=== PATIENT | male | born 1975 | race Two or more races ===

== ENCOUNTER 2020-09-01 14:55 | Emergency (ER) | payer SELFPAY ==
[~2020-09-01] VITALS: Ht 177.8 cm; Wt 91.0 kg
[2020-09-01] MEDS ORDERED: KETOROLAC 60MG/2ML VIAL IM ONE (15:30)
[2020-09-01 16:02] VITALS: BP 139/86
== END 2020-09-01 16:06 | disposition home or self-care (01) ==
LOC: ER 14:55
DX: M25.511 Pain in right shoulder (principal); M25.521 Pain in right elbow
CPT/HCPCS: 73030; 73070; 96372; 99284; J1885

== ENCOUNTER 2021-04-15 02:07 | Emergency (ER) | payer MEDICAID ==
[~2021-04-15] VITALS: Ht 167.6 cm; Wt 78.0 kg
[2021-04-15 04:11] LABS: CLARITY URINE CLEAR (CLEAR); COLOR URINE YELLOW (YELLOW); KETONES URINE TRACE (NEGATIVE); LEUKOCYTE ESTERASE URINE NEGATIVE (NEGATIVE); NITRITE URINE NEGATIVE (NEGATIVE); OCCULT BLOOD URINE NEGATIVE (NEGATIVE); PROTEIN URINE TRACE (NEGATIVE); SPECIFIC GRAVITY URINE 1.022 (1.005-1.030); UROBILINOGEN URINE 0.2 E.U./dL (0.2-1.0)
[2021-04-15 04:19] LABS: EOSINOPHILS % 2.3 % (0.0-5.0); HEMATOCRIT. 44.6 % (42.0-52.0); HEMOGLOBIN. 15.2 g/dL (14.0-18.0); LYMPHOCYTES % 17.1 % (20.0-50.0); MEAN CORPUSCULAR HEMOGLOBIN 28.3 pg (28.0-32.0); MEAN CORPUSCULAR VOLUME 82.9 fL (80.0-94.0); MONOCYTES % 6.8 % (2.0-8.0); NEUTROPHILS % 72.8 % (40.0-76.0); PLATELET 289 x1000/uL (130-400); RED BLOOD CELL COUNT 5.38 mill/uL (4.7-6.1); RED CELL DISTRIBUTION WIDTH 12.8 % (11.6-14.6)
[2021-04-15 04:22] LABS: CHLORIDE 108 mEq/L (98-107)
[2021-04-15 04:24] LABS: *AMPHETAMINES SCREEN URINE PRESUMTIVE POSITIVE (NEGATIVE); *BARBITURATES SCREEN URINE NEGATIVE (NEGATIVE); *BENZODIAZEPINES SCREEN URINE NEGATIVE (NEGATIVE); *COCAINE SCREEN URINE NEGATIVE (NEGATIVE); METHADONE URINE SCREEN NEGATIVE (NEGATIVE)
[2021-04-15 04:25] LABS: CANNABINOID URINE SCREEN NEGATIVE (NEGATIVE); OPIATES URINE SCREEN NEGATIVE (NEGATIVE); PHENCYCLIDINE URINE SCREEN NEGATIVE (NEGATIVE)
[2021-04-15 04:27] LABS: ETHANOL BLOOD < 10 mg/dL
[2021-04-15 06:25] VITALS: BP 120/92
== END 2021-04-15 06:26 | disposition home or self-care (01) ==
LOC: ER 02:07
DX: F15.10 Other stimulant abuse, uncomplicated (principal); F16.10 Hallucinogen abuse, uncomplicated; F22 Delusional disorders; R06.00 Dyspnea, unspecified
CPT/HCPCS: 36415; 71045; 80048; 80305; 80320; 81003; 85025; 93005; 99285; G0480

== ENCOUNTER 2021-04-28 16:40 | Emergency (ER) | payer MEDICAID ==
[~2021-04-28] VITALS: Ht 175.3 cm; Wt 100.0 kg
[2021-04-28 17:02] VITALS: BP 117/78
[2021-04-28] MEDS ORDERED: ACETAMINOPHEN 500MG TABLET PO ONE (18:30)
== END 2021-04-28 20:50 | disposition home or self-care (01) ==
LOC: ER 16:40
DX: M79.621 Pain in right upper arm (principal); M25.531 Pain in right wrist
CPT/HCPCS: 29125; 73080; 73090; 73110; 99284; A4565

== ENCOUNTER 2021-06-30 13:32 | Emergency (ER) | payer MEDICAID ==
[~2021-06-30] VITALS: Ht 177.8 cm; Wt 80.0 kg
[2021-06-30 13:41] VITALS: BP 136/80
[2021-06-30] MEDS ORDERED: LORAZEPAM 0.5MG TABLET PO ONE (14:15)
== END 2021-06-30 15:28 | disposition home or self-care (01) ==
LOC: ER 13:41
DX: J02.9 Acute pharyngitis, unspecified (principal)
CPT/HCPCS: 99283

== ENCOUNTER 2021-09-27 07:36 | Emergency (ER) | payer MEDICAID ==
[~2021-09-27] VITALS: Ht 175.3 cm; Wt 76.0 kg
[2021-09-27 08:56] LABS: BASOPHILS % 1.1 % (0.0-2.0); HEMATOCRIT. 43.7 % (42.0-52.0); MEAN CORPUSCULAR HEMOGLOBIN 29.1 pg (28.0-32.0); MEAN CORPUSCULAR VOLUME 84.5 fL (80.0-94.0); MEAN PLATELET VOLUME 8.5 fl (7.4-10.4); MONOCYTES % 4.3 % (2.0-8.0); NEUTROPHILS % 79.6 % (40.0-76.0); PLATELET 293 x1000/uL (130-400); RED BLOOD CELL COUNT 5.16 mill/uL (4.7-6.1); RED CELL DISTRIBUTION WIDTH 13.2 % (11.6-14.6)
[2021-09-27 09:03] LABS: CHLORIDE 109 mEq/L (98-107)
[2021-09-27 09:12] LABS: ETHANOL BLOOD < 10 mg/dL
[2021-09-27 12:04] LABS: CLARITY URINE CLEAR (CLEAR); COLOR URINE YELLOW (YELLOW); KETONES URINE NEGATIVE (NEGATIVE); LEUKOCYTE ESTERASE URINE NEGATIVE (NEGATIVE); NITRITE URINE NEGATIVE (NEGATIVE); OCCULT BLOOD URINE NEGATIVE (NEGATIVE); PROTEIN URINE NEGATIVE (NEGATIVE); SPECIFIC GRAVITY URINE 1.011 (1.005-1.030); UROBILINOGEN URINE 0.2 E.U./dL (0.2-1.0)
[2021-09-27 12:15] LABS: *AMPHETAMINES SCREEN URINE PRESUMTIVE POSITIVE (NEGATIVE); *BARBITURATES SCREEN URINE NEGATIVE (NEGATIVE); *BENZODIAZEPINES SCREEN URINE NEGATIVE (NEGATIVE); *COCAINE SCREEN URINE NEGATIVE (NEGATIVE); CANNABINOID URINE SCREEN NEGATIVE (NEGATIVE); METHADONE URINE SCREEN NEGATIVE (NEGATIVE)
[2021-09-27 12:23] LABS: OPIATES URINE SCREEN NEGATIVE (NEGATIVE)
[2021-09-27 12:24] LABS: PHENCYCLIDINE URINE SCREEN NEGATIVE (NEGATIVE)
[2021-09-27 15:17] VITALS: BP 129/71
== END 2021-09-27 15:32 | disposition home or self-care (01) ==
LOC: ER 07:48
DX: R44.1 Visual hallucinations (principal); F15.10 Other stimulant abuse, uncomplicated; F19.10 Other psychoactive substance abuse, uncomplicated
CPT/HCPCS: 36415; 80053; 80305; 80307; 80329; 81003; 85025; 99285; G0480; 80320

== ENCOUNTER 2021-10-17 10:22 | Emergency (ER) | payer MEDICAID ==
[~2021-10-17] VITALS: Ht 167.6 cm; Wt 95.0 kg
[2021-10-17 11:10] LABS: BASOPHILS % 1.3 % (0.0-2.0); EOSINOPHILS % 1.5 % (0.0-5.0); HEMATOCRIT. 47.2 % (42.0-52.0); HEMOGLOBIN. 16.1 g/dL (14.0-18.0); LYMPHOCYTES % 15.5 % (20.0-50.0); MEAN CORPUSCULAR HEMOGLOBIN 28.8 pg (28.0-32.0); MEAN CORPUSCULAR VOLUME 84.3 fL (80.0-94.0); MEAN PLATELET VOLUME 8.1 fl (7.4-10.4); MONOCYTES % 5.2 % (2.0-8.0); NEUTROPHILS % 76.5 % (40.0-76.0); PLATELET 339 x1000/uL (130-400); RED BLOOD CELL COUNT 5.59 mill/uL (4.7-6.1); RED CELL DISTRIBUTION WIDTH 13.1 % (11.6-14.6)
[2021-10-17 11:13] LABS: CLARITY URINE CLEAR (CLEAR); COLOR URINE YELLOW (YELLOW); KETONES URINE NEGATIVE (NEGATIVE); LEUKOCYTE ESTERASE URINE NEGATIVE (NEGATIVE); NITRITE URINE NEGATIVE (NEGATIVE); OCCULT BLOOD URINE NEGATIVE (NEGATIVE); PROTEIN URINE 1+ (NEGATIVE); SPECIFIC GRAVITY URINE 1.012 (1.005-1.030); UROBILINOGEN URINE 0.2 E.U./dL (0.2-1.0)
[2021-10-17 11:17] LABS: CHLORIDE 104 mEq/L (98-107)
[2021-10-17 11:24] LABS: ETHANOL BLOOD < 10 mg/dL
[2021-10-17 11:29] LABS: *BARBITURATES SCREEN URINE NEGATIVE (NEGATIVE); *BENZODIAZEPINES SCREEN URINE NEGATIVE (NEGATIVE); *COCAINE SCREEN URINE NEGATIVE (NEGATIVE)
[2021-10-17 11:30] LABS: METHADONE URINE SCREEN NEGATIVE (NEGATIVE); OPIATES URINE SCREEN NEGATIVE (NEGATIVE); PHENCYCLIDINE URINE SCREEN NEGATIVE (NEGATIVE)
[2021-10-17 11:31] LABS: *AMPHETAMINES SCREEN URINE PRESUMTIVE POSITIVE (NEGATIVE); CANNABINOID URINE SCREEN NEGATIVE (NEGATIVE)
[2021-10-17 14:00] VITALS: BP 127/81
== END 2021-10-17 14:02 | disposition home or self-care (01) ==
LOC: ER 10:22
DX: F19.10 Other psychoactive substance abuse, uncomplicated (principal); F22 Delusional disorders; F23 Brief psychotic disorder
CPT/HCPCS: 36415; 73030; 80053; 80305; 80307; 80320; 80329; 81003; 85025; 99284; G0480

== ENCOUNTER 2023-07-25 10:27 | Inpatient (IN) | payer MEDICAID ==
[~2023-07-25] VITALS: Ht 170.2 cm; Wt 75.3 kg
[2023-07-25] MEDS ORDERED: IOHEXOL-350 100 ML BOTTLE ONE ×2 (11:26→12:30)
[2023-07-25 11:36] LABS: MEAN CORPUSCULAR HEMOGLOBIN 29.2 pg (28.0-32.0); MEAN CORPUSCULAR HGB CONC 34.4 g/dL (31.0-37.0); MEAN CORPUSCULAR VOLUME 84.9 fL (80.0-94.0); MEAN PLATELET VOLUME 8.3 fl (7.4-10.4); PLATELET 252 x1000/uL (130-400); RED BLOOD CELL COUNT 1.84 mill/uL (4.7-6.1); RED CELL DISTRIBUTION WIDTH 12.8 % (11.6-14.6); WHITE BLOOD COUNT 17.5 x1000/uL (4.5-11.0)
[2023-07-25] MEDS ORDERED: ONDANSETRON HCL 4MG/2ML INJ IV ONE (11:45)
[2023-07-25 11:48] LABS: CHLORIDE 102 mEq/L (98-107); INDEX HEMOLYSI 1 (1-3); INDEX ICTERIC 1 (1-4); INDEX LIPEMIC 1 (1-3); INR 1.4; POTASSIUM 3.6 mEq/L (3.5-5.1); PROTHROMBIN TIME 14.3 sec (9.6-11.0); SODIUM 134 mEq/L (136-145)
[2023-07-25 11:59] LABS: ALANINE AMINOTRANSFERASE 30 IU/L (13-61); ALBUMIN 2.1 g/dL (3.4-5.0); ASPARTATE AMINOTRANSFERASE 17 IU/L (15-37); BILIRUBIN TOTAL 0.5 mg/dL (0.1-1.0); CALCIUM 6.6 mg/dL (8.5-10.1); CARBON DIOXIDE 19 mEq/L (21-32); CREATININE 1.3 mg/dL (0.6-1.3); ETHANOL BLOOD < 10 mg/dL (-10); GLUCOSE 204 mg/dL (70-105); PROTEIN TOTAL 4.2 g/dL (6.0-8.3); UREA NITROGEN BLOOD 39 mg/dL (7-21)
[2023-07-25 12:32] LABS: DIFFERENTIAL COMMENT 1; HEMATOCRIT. 15.7 % (42.0-52.0); HEMOGLOBIN. 5.4 g/dL (14.0-18.0)
[2023-07-25 13:20] LABS: PLATELET ESTIMATE NORMAL
[2023-07-25 15:30] VITALS: PULSE 116; RESP 20
[2023-07-25] MEDS ORDERED: MIDAZOLAM HCL 2 MG/2 ML VIAL IV ONE (15:45)
[2023-07-25] MEDS ORDERED: MIDAZOLAM HCL 100 MG in DEXT 5% WATER 80 ML IV ONE (15:45)
[2023-07-25] MEDS ORDERED: MIDAZOLAM HCL 100 MG in SODIUM CHLORIDE 0.9% 80 ML IV NR (16:00)
[2023-07-25] MEDS ORDERED: FENTANYL CITRATE/PF 1,000 MCG in SODIUM CHLORIDE 0.9% 80 ML IV PRN (16:00)
[2023-07-25] MEDS ORDERED: FENTANYL CITRATE 2,500 MCG in SODIUM CHLORIDE 0.9% 200 ML IV PRN (16:30)
[2023-07-25 17:00] LABS: CLARITY URINE CLEAR (CLEAR); COLOR URINE YELLOW (YELLOW); GLUCOSE URINE NEGATIVE (NEGATIVE); KETONES URINE NEGATIVE (NEGATIVE); LEUKOCYTE ESTERASE URINE NEGATIVE (NEGATIVE); NITRITE URINE NEGATIVE (NEGATIVE); OCCULT BLOOD URINE 2+ (NEGATIVE); PH URINE 5.5 (4.5-8.0); PROTEIN URINE NEGATIVE (NEGATIVE); SPECIFIC GRAVITY URINE 1.076 (1.005-1.030); UROBILINOGEN URINE 0.2 E.U./dL (0.2-1.0)
[2023-07-25 17:03] LABS: BACTERIA URINE NONE SEEN; WBC URINE 0-2 /hpf (0-2); YEAST URINE NONE SEEN
[2023-07-25 17:16] LABS: *AMPHETAMINES SCREEN URINE NEGATIVE (NEGATIVE); *BARBITURATES SCREEN URINE NEGATIVE (NEGATIVE); *BENZODIAZEPINES SCREEN URINE NEGATIVE (NEGATIVE); *COCAINE SCREEN URINE NEGATIVE (NEGATIVE); CANNABINOID URINE SCREEN NEGATIVE (NEGATIVE); ECSTASY MDMA SCREEN URINE NEGATIVE (NEGATIVE); METHADONE URINE SCREEN NEGATIVE (NEGATIVE); OPIATES URINE SCREEN NEGATIVE (NEGATIVE); PHENCYCLIDINE URINE SCREEN PRESUMTIVE POSITIVE (NEGATIVE)
[2023-07-25 17:40] LABS: RBC URINE 0-2 /hpf (0-2); SQUAMOUS EPITHELIAL CELL URINE RARE /lpf (RARE/1+)
[2023-07-25 18:00] VITALS: PULSE 125; RESP 27
[2023-07-25 19:14] LABS: BG CARBOXYHEMOGLOBIN 0.3 % (0.5-1.5); BG FRACTION INSPIRED OXYGEN 100; BG HCO3 ACT 20.1 mmol/L (22.0-26.0); BG METHEMOGLOBIN 0.3 % (0.0-1.5); BG OXYHEMOGLOBIN 98.4 % (94.0-97.0); BG PCO2 23.5 mmHg (35.0-45.0); BG SAMPLE SITE RIGHT RADIAL; BG TOTAL HEMOGLOBIN 10.9 g/dL (12.0-18.0); BG VENT MODE VENT - AC
[2023-07-25 20:00] VITALS: PULSE 137; RESP 30
[2023-07-25] MEDS ORDERED: DEXTROSE 50% WATER 50ML SYRINGE IV PRN (20:00)
[2023-07-25] MEDS ORDERED: IPRATROPIUM/ALBUTEROL 0.5-3(2.5)MG/3ML NEB HHN PRN (20:00)
[2023-07-25] MEDS ORDERED: CLONIDINE 0.1MG TABLET PO PRN (20:00)
[2023-07-25] MEDS ORDERED: HYDROCODONE/ACETAMINOPHEN 5/325MG TABLET PO PRN (20:00)
[2023-07-25] MEDS ORDERED: SODIUM CHLORIDE 0.9% 500 ML IV NR (20:15)
[2023-07-25] MEDS ORDERED: PHENYLEPHRINE 100 MG in DEXT 5% WATER 240 ML IV PRN (20:15)
[2023-07-25] MEDS ORDERED: NALOXONE HCL 0.4MG/ML VIAL IV PRN (20:30)
[2023-07-25] MEDS ORDERED: VANCOMYCIN 1.25GM PMX (XELLIA) 250 ML IV NR (20:30)
[2023-07-25 20:37] LABS: HEMATOCRIT. 26.9 % (42.0-52.0); HEMOGLOBIN. 9.4 g/dL (14.0-18.0); MEAN CORPUSCULAR HEMOGLOBIN 29.9 pg (28.0-32.0); MEAN CORPUSCULAR VOLUME 85.4 fL (80.0-94.0); MEAN PLATELET VOLUME 8.3 fl (7.4-10.4); PLATELET 186 x1000/uL (130-400); RED BLOOD CELL COUNT 3.15 mill/uL (4.7-6.1); RED CELL DISTRIBUTION WIDTH 15.1 % (11.6-14.6); WHITE BLOOD COUNT 30.9 x1000/uL (4.5-11.0)
[2023-07-25 20:39] LABS: DIFFERENTIAL COMMENT 1
[2023-07-25 20:46] LABS: AMMONIA 41 uMol/L (<32); INDEX HEMOLYSI 1 (1-3); INDEX ICTERIC 1 (1-4); INDEX LIPEMIC 1 (1-3)
[2023-07-25 20:56] LABS: PLATELET ESTIMATE NORMAL
[2023-07-25] MEDS ORDERED: INSULIN LISPRO 100 UNITS/ML SUBCUT SCH (21:00)
[2023-07-25 21:05] LABS: CHOLESTEROL 68 mg/dL (<200); CREATINE KINASE 194 IU/L (39-308); HDL CHOLESTEROL 27 mg/dL (40-59); LDL CHOLESTEROL 31 mg/dL (5-100); T4 FREE 1.19 ng/dL (0.76-1.46); THYROID STIMULATING HORMONE 0.21 uIU/mL (0.36-3.74); TRIGLYCERIDE 129 mg/dL (0-150); TROPONIN I HIGH SENSITIVITY 39 ng/L (<78)
[2023-07-25] MEDS: PANTOPRAZOLE SODIUM 40 MG/VIAL IV SCH (21:30)
[2023-07-25] MEDS: SODIUM CHLORIDE 0.9% 1,000 ML IV SCH (21:31)
[2023-07-25] MEDS: BLOOD SUGAR DIAGNOSTIC STRIP TEST SCH (21:46)
[2023-07-25] MEDS: ACETAMINOPHEN 325MG TABLET PO PRN (21:59)
[2023-07-25] MEDS ORDERED: PIPERACILLIN/TAZ 3.375G PREMIX 50 ML IV SCH (22:00)
[2023-07-25] MEDS ORDERED: PIPERACILLIN/TAZOBACTAM 3.375 G in DEXTROSE 5% WATER 50 ML IV SCH (22:00)
[2023-07-26] VITALS (115 sets, daily range): BP systolic 80–134; BP diastolic 23–86; PULSE 94–139; RESP 12–30; TEMP 97.5–100
[2023-07-26] MEDS: IPRATROPIUM BROMIDE (0.02%) 0.5MG/2.5ML NEB HHN SCH ×4 (00:15→20:19)
[2023-07-26] MEDS: SODIUM CHLORIDE 0.9% 1,000 ML IV SCH ×2 (02:07→16:00)
[2023-07-26] MEDS: PHENYLEPHRINE 100 MG in DEXT 5% WATER 240 ML IV PRN ×2 (04:10→14:41)
[2023-07-26] MEDS: BLOOD SUGAR DIAGNOSTIC STRIP TEST SCH (06:26)
[2023-07-26] MEDS: PIPERACILLIN/TAZOBACTAM 3.375G in DEXT 5% WATER 50ML IV SCH ×2 (07:00→14:41)
[2023-07-26 07:16] LABS: BASOPHILS % 0.2 % (0.0-2.0); DIFFERENTIAL COMMENT 0; LYMPHOCYTES % 7.4 % (20.0-50.0); MEAN CORPUSCULAR HEMOGLOBIN 31.4 pg (28.0-32.0); MEAN CORPUSCULAR HGB CONC 35.1 g/dL (31.0-37.0); MEAN CORPUSCULAR VOLUME 89.5 fL (80.0-94.0); MEAN PLATELET VOLUME 9.3 fl (7.4-10.4); MONOCYTES % 6.4 % (2.0-8.0); PLATELET 165 x1000/uL (130-400); RED BLOOD CELL COUNT 1.98 mill/uL (4.7-6.1)
[2023-07-26 07:17] LABS: CHLORIDE 114 mEq/L (98-107); INDEX HEMOLYSI 1 (1-3); INDEX ICTERIC 1 (1-4); INDEX LIPEMIC 1 (1-3); POTASSIUM 4.4 mEq/L (3.5-5.1); SODIUM 142 mEq/L (136-145)
[2023-07-26 07:23] LABS: ALANINE AMINOTRANSFERASE 26 IU/L (13-61); ALBUMIN 1.7 g/dL (3.4-5.0); ASPARTATE AMINOTRANSFERASE 38 IU/L (15-37); BILIRUBIN TOTAL 0.6 mg/dL (0.1-1.0); CALCIUM 6.6 mg/dL (8.5-10.1); CARBON DIOXIDE 20 mEq/L (21-32); GLUCOSE 148 mg/dL (70-105); PROTEIN TOTAL 3.4 g/dL (6.0-8.3); UREA NITROGEN BLOOD 34 mg/dL (7-21)
[2023-07-26 07:52] LABS: HEMOGLOBIN. 6.2 g/dL (14.0-18.0)
[2023-07-26 07:53] LABS: HEMATOCRIT. 17.7 % (42.0-52.0)
[2023-07-26 08:50] LABS: BG BASE EXCESS -1.4 mmol/L (-2.0-2.0); BG CARBOXYHEMOGLOBIN 0.3 % (0.5-1.5); BG DEOXYHEMOGLOBIN 1.9 % (0.0-5.0); BG FRACTION INSPIRED OXYGEN 50; BG HCO3 ACT 21.7 mmol/L (22.0-26.0); BG METHEMOGLOBIN 0.1 % (0.0-1.5); BG OXYGEN SATURATION 98.1 % (92.0-98.5); BG OXYHEMOGLOBIN 97.7 % (94.0-97.0); BG PCO2 29.4 mmHg (35.0-45.0); BG PH 7.485 (7.350-7.450); BG PO2 130.3 mmHg (75.0-100.0); BG SAMPLE SITE LEFT RADIAL; BG TOTAL HEMOGLOBIN 7.6 g/dL (12.0-18.0); BG VENT MODE VENT - AC
[2023-07-26] MEDS ORDERED: VANCOMYCIN 1G PREMIX 200 ML IV SCH (09:00)
[2023-07-26] MEDS: PANTOPRAZOLE SODIUM 40 MG/VIAL IV SCH ×2 (10:29→16:40)
[2023-07-26] MEDS: VANCOMYCIN 1.25GM PMX (XELLIA) 250 ML IV SCH ×2 (10:29→20:48)
[2023-07-26] MEDS ORDERED: GUAIFENESIN-DM 200MG-20MG/10ML UDC PO SCH (11:45)
[2023-07-26] MEDS ORDERED: MIDAZOLAM HCL 100 MG in SODIUM CHLORIDE 0.9% 80 ML IV PRN (12:00)
[2023-07-26] MEDS ORDERED: FENTANYL CITRATE/PF 2,500 MCG in SODIUM CHLORIDE 0.9% 200 ML IV PRN (14:00)
[2023-07-26 14:50] LABS: HEMATOCRIT 23.3 % (42.0-52.0); HEMOGLOBIN 7.9 g/dL (14.0-18.0)
[2023-07-26 15:51] LABS: HEPATITIS B SURFACE ANTIGEN NEGATIVE
[2023-07-26 16:21] LABS: HEPATITIS A AB IGM NEGATIVE (NEGATIVE)
[2023-07-26] MEDS: PHYTONADIONE 10MG/ML INJ SUBCUT SCH (16:38)
[2023-07-26] MEDS ORDERED: CALCIUM GLUCONATE 1GM PREMIX 100 ML IV NR (17:30)
[2023-07-26 20:51] LABS: HEPATITIS C VIR.AB 0.12 INDEXVAL (0.00-0.80)
[2023-07-26 20:52] LABS: HEPATITIS B CORE AB IGM NEGATIVE
[2023-07-26] MEDS ORDERED: PNEUMOCOCCAL 23-VAL P-SAC VAC 0.5 ML IM ONE (21:00)
[2023-07-26 22:19] LABS: HEMATOCRIT. 21.9 % (42.0-52.0); HEMOGLOBIN. 7.3 g/dL (14.0-18.0); MEAN CORPUSCULAR HEMOGLOBIN 29.9 pg (28.0-32.0); MEAN CORPUSCULAR HGB CONC 33.3 g/dL (31.0-37.0); MEAN CORPUSCULAR VOLUME 89.8 fL (80.0-94.0); MEAN PLATELET VOLUME 9.1 fl (7.4-10.4); PLATELET 158 x1000/uL (130-400); RED BLOOD CELL COUNT 2.44 mill/uL (4.7-6.1); RED CELL DISTRIBUTION WIDTH 14.4 % (11.6-14.6)
[2023-07-26 22:21] LABS: DIFFERENTIAL COMMENT 1; HEMATOCRIT 22.3 % (42.0-52.0); HEMOGLOBIN 7.5 g/dL (14.0-18.0)
[2023-07-26 22:28] LABS: INR 1.1
[2023-07-26 22:32] LABS: INDEX HEMOLYSI 1 (1-3); INDEX ICTERIC 1 (1-4); INDEX LIPEMIC 1 (1-3)
[2023-07-26 22:35] LABS: IRON 25 ug/dL (50-175); TOTAL IRON BINDING CAPACITY 324 ug/dL (250-450)
[2023-07-26 22:45] LABS: PLATELET ESTIMATE NORMAL
[2023-07-26 22:54] LABS: FERRITIN 190 ng/mL (22-322)
[2023-07-26 23:06] LABS: VITAMIN B12 SERUM 343 pg/mL (211-911)
[2023-07-27] VITALS (97 sets, daily range): BP systolic 102–177; BP diastolic 52–99; PULSE 81–139; RESP 8–84; TEMP 98.2–100.1
[2023-07-27 00:30] LABS: HEMOGLOBIN 6.3 g/dL (14.0-18.0)
[2023-07-27 00:31] LABS: HEMATOCRIT 19.1 % (42.0-52.0)
[2023-07-27] MEDS: IPRATROPIUM BROMIDE (0.02%) 0.5MG/2.5ML NEB HHN SCH ×4 (01:31→20:30)
[2023-07-27] MEDS: PIPERACILLIN/TAZOBACTAM 3.375G in DEXT 5% WATER 50ML IV SCH ×4 (01:35→21:21)
[2023-07-27] MEDS: SODIUM CHLORIDE 0.9% 1,000 ML IV SCH ×3 (01:59→21:21)
[2023-07-27 05:58] LABS: MEAN CORPUSCULAR HEMOGLOBIN 29.8 pg (28.0-32.0); MEAN CORPUSCULAR HGB CONC 33.4 g/dL (31.0-37.0); MEAN CORPUSCULAR VOLUME 89.2 fL (80.0-94.0); MEAN PLATELET VOLUME 8.6 fl (7.4-10.4); PLATELET 141 x1000/uL (130-400); RED CELL DISTRIBUTION WIDTH 14.2 % (11.6-14.6); WHITE BLOOD COUNT 27.7 x1000/uL (4.5-11.0)
[2023-07-27 06:06] LABS: CHLORIDE 119 mEq/L (98-107); INDEX HEMOLYSI 1 (1-3); INDEX ICTERIC 1 (1-4); INDEX LIPEMIC 1 (1-3); POTASSIUM 3.7 mEq/L (3.5-5.1); SODIUM 142 mEq/L (136-145)
[2023-07-27 06:18] LABS: CALCIUM 6.8 mg/dL (8.5-10.1); CARBON DIOXIDE 24 mEq/L (21-32); CREATININE 0.9 mg/dL (0.6-1.3); GLUCOSE 122 mg/dL (70-105); UREA NITROGEN BLOOD 21 mg/dL (7-21)
[2023-07-27 06:28] LABS: DIFFERENTIAL COMMENT 1; HEMATOCRIT. 20.5 % (42.0-52.0); HEMOGLOBIN. 6.8 g/dL (14.0-18.0)
[2023-07-27 07:35] LABS: NUCLEATED RED BLOOD CELLS 7 /100 WBC; PLATELET ESTIMATE NORMAL
[2023-07-27 08:02] LABS: BG CARBOXYHEMOGLOBIN 0.4 % (0.5-1.5); BG DEOXYHEMOGLOBIN 2.5 % (0.0-5.0); BG HCO3 ACT 22.3 mmol/L (22.0-26.0); BG METHEMOGLOBIN 0.3 % (0.0-1.5); BG OXYGEN SATURATION 97.5 % (92.0-98.5); BG OXYHEMOGLOBIN 96.8 % (94.0-97.0); BG PCO2 30.6 mmHg (35.0-45.0); BG PO2 107.9 mmHg (75.0-100.0); BG SAMPLE SITE RIGHT RADIAL; BG TOTAL HEMOGLOBIN 6.8 g/dL (12.0-18.0); BG TOTAL RESPIRATORY RATE 17 b/min; BG VENT MODE VENT - AC
[2023-07-27] MEDS: PHYTONADIONE 10MG/ML INJ SUBCUT SCH (09:43)
[2023-07-27] MEDS: VANCOMYCIN 1.25GM PMX (XELLIA) 250 ML IV SCH (09:43)
[2023-07-27] MEDS: PANTOPRAZOLE SODIUM 40 MG/VIAL IV SCH ×2 (09:43→18:15)
[2023-07-27] MEDS ORDERED: IOHEXOL-350 100 ML BOTTLE ONE (14:53)
[2023-07-27 16:40] LABS: HEMATOCRIT 22.1 % (42.0-52.0); HEMOGLOBIN 7.4 g/dL (14.0-18.0)
[2023-07-27] MEDS ORDERED: VANCOMYCIN 1.25GM PMX (XELLIA) 250 ML IV SCH (18:00)
[2023-07-27] MEDS: ACETAMINOPHEN 325MG TABLET PO PRN (18:57)
[2023-07-27 22:30] LABS: HEMATOCRIT 24.7 % (42.0-52.0); HEMOGLOBIN 8.2 g/dL (14.0-18.0)
[2023-07-28] VITALS (66 sets, daily range): BP systolic 88–169; BP diastolic 51–94; PULSE 70–120; RESP 12–39; TEMP 97.8–99.5
[2023-07-28] MEDS: IPRATROPIUM BROMIDE (0.02%) 0.5MG/2.5ML NEB HHN SCH ×4 (01:37→20:57)
[2023-07-28 05:15] LABS: HEMATOCRIT. 23.2 % (42.0-52.0); HEMOGLOBIN. 7.9 g/dL (14.0-18.0); MEAN CORPUSCULAR HGB CONC 34.1 g/dL (31.0-37.0); MEAN CORPUSCULAR VOLUME 87.9 fL (80.0-94.0); PLATELET 124 x1000/uL (130-400); RED BLOOD CELL COUNT 2.64 mill/uL (4.7-6.1); RED CELL DISTRIBUTION WIDTH 14.7 % (11.6-14.6); WHITE BLOOD COUNT 18.2 x1000/uL (4.5-11.0)
[2023-07-28 05:24] LABS: PROTHROMBIN TIME 10.7 sec (9.6-11.0)
[2023-07-28] MEDS: PIPERACILLIN/TAZOBACTAM 3.375G in DEXT 5% WATER 50ML IV SCH ×3 (05:42→21:09)
[2023-07-28 05:54] LABS: CHLORIDE 123 mEq/L (98-107); INDEX HEMOLYSI 1 (1-3); INDEX ICTERIC 1 (1-4); INDEX LIPEMIC 1 (1-3); POTASSIUM 3.4 mEq/L (3.5-5.1); SODIUM 147 mEq/L (136-145)
[2023-07-28 06:02] LABS: ALANINE AMINOTRANSFERASE 21 IU/L (13-61); ALBUMIN 1.9 g/dL (3.4-5.0); ASPARTATE AMINOTRANSFERASE 36 IU/L (15-37); BILIRUBIN TOTAL 0.6 mg/dL (0.1-1.0); CALCIUM 6.7 mg/dL (8.5-10.1); CARBON DIOXIDE 24 mEq/L (21-32); CREATININE 0.7 mg/dL (0.6-1.3); GLUCOSE 101 mg/dL (70-105); PROTEIN TOTAL 4.4 g/dL (6.0-8.3); UREA NITROGEN BLOOD 13 mg/dL (7-21)
[2023-07-28 06:15] LABS: DIFFERENTIAL COMMENT 1
[2023-07-28] MEDS: PHYTONADIONE 10MG/ML INJ SUBCUT SCH (09:07)
[2023-07-28] MEDS: PANTOPRAZOLE SODIUM 40 MG/VIAL IV SCH ×2 (09:07→17:30)
[2023-07-28] MEDS: SODIUM CHLORIDE 0.9% 1,000 ML IV SCH (09:08)
[2023-07-28 09:11] LABS: BG BASE EXCESS -0.1 mmol/L (-2.0-2.0); BG CARBOXYHEMOGLOBIN 0.3 % (0.5-1.5); BG DEOXYHEMOGLOBIN 2.1 % (0.0-5.0); BG HCO3 ACT 23.4 mmol/L (22.0-26.0); BG METHEMOGLOBIN 0.3 % (0.0-1.5); BG OXYGEN SATURATION 97.9 % (92.0-98.5); BG OXYHEMOGLOBIN 97.3 % (94.0-97.0); BG PCO2 33.6 mmHg (35.0-45.0); BG PH 7.461 (7.350-7.450); BG PO2 109.7 mmHg (75.0-100.0); BG SAMPLE SITE RIGHT RADIAL; BG TOTAL HEMOGLOBIN 8.7 g/dL (12.0-18.0); BG VENT MODE VENT - AC
[2023-07-28 09:44] LABS: NUCLEATED RED BLOOD CELLS 3 /100 WBC; PLATELET ESTIMATE SLIGHTLY DECREASED
[2023-07-28] MEDS ORDERED: LIDOCAINE HCL 1% 10 MG/ML 10ML VIAL ONE (10:12)
[2023-07-28] MEDS: POTASSIUM CHLORIDE INJ 40 MEQ in DEXT 5% WATER 250 ML IV SCH ×2 (10:29→13:48)
[2023-07-28] MEDS: DEXTROSE 5% WATER 1,000 ML IV SCH ×2 (10:30→23:09)
[2023-07-28] MEDS ORDERED: DEXAMETHASONE 4MG/ML 1ML VIAL ONE (10:38)
[2023-07-28] MEDS ORDERED: PROPOFOL 200MG/20ML VIAL IV ONE (10:38)
[2023-07-28] MEDS ORDERED: ONDANSETRON HCL 4MG/2ML INJ ONE (10:38)
[2023-07-28] MEDS ORDERED: KCL 20MEQ/100ML PREMIX 100 ML IV SCH (11:00)
[2023-07-28 14:53] LABS: HEMATOCRIT 24.2 % (42.0-52.0); HEMOGLOBIN 8.1 g/dL (14.0-18.0)
[2023-07-28] MEDS ORDERED: LORAZEPAM 2MG/ML CPJ IV PRN (17:00)
[2023-07-28] MEDS: LORAZEPAM 2MG/ML CPJ IV PRN (21:09)
[2023-07-28 21:19] LABS: HEMATOCRIT 24.2 % (42.0-52.0); HEMOGLOBIN 8.2 g/dL (14.0-18.0)
[2023-07-28] MEDS ORDERED: NOREPINEPHRINE 8MG/250ML PMX 250 ML IV PRN (23:45)
[2023-07-28] MEDS ORDERED: FENTANYL CITRATE/PF 2,500 MCG in SODIUM CHLORIDE 0.9% 200 ML IV PRN (23:45)
[2023-07-29] VITALS (59 sets, daily range): BP systolic 98–156; BP diastolic 46–95; PULSE 64–120; RESP 11–36; TEMP 97.7–99.4
[2023-07-29 00:23] LABS: BG BASE EXCESS -3.5 mmol/L (-2.0-2.0); BG CARBOXYHEMOGLOBIN 0.3 % (0.5-1.5); BG DEOXYHEMOGLOBIN 1.1 % (0.0-5.0); BG FRACTION INSPIRED OXYGEN 60; BG HCO3 ACT 22.2 mmol/L (22.0-26.0); BG METHEMOGLOBIN 0.2 % (0.0-1.5); BG OXYGEN SATURATION 98.9 % (92.0-98.5); BG OXYHEMOGLOBIN 98.4 % (94.0-97.0); BG PH 7.331 (7.350-7.450); BG PO2 208.9 mmHg (75.0-100.0); BG SAMPLE SITE RIGHT RADIAL; BG TOTAL HEMOGLOBIN 10.5 g/dL (12.0-18.0); BG VENT MODE VENT - SIMV
[2023-07-29 00:38] LABS: HEMATOCRIT 27.6 % (42.0-52.0); HEMOGLOBIN 9.1 g/dL (14.0-18.0)
[2023-07-29] MEDS: IPRATROPIUM BROMIDE (0.02%) 0.5MG/2.5ML NEB HHN SCH ×3 (01:48→14:40)
[2023-07-29] MEDS: PIPERACILLIN/TAZOBACTAM 3.375G in DEXT 5% WATER 50ML IV SCH ×3 (05:19→20:57)
[2023-07-29 05:43] LABS: HEMOGLOBIN. 7.7 g/dL (14.0-18.0); MEAN CORPUSCULAR HEMOGLOBIN 29.4 pg (28.0-32.0); MEAN CORPUSCULAR HGB CONC 33.4 g/dL (31.0-37.0); MEAN CORPUSCULAR VOLUME 88.1 fL (80.0-94.0); MEAN PLATELET VOLUME 8.1 fl (7.4-10.4); PLATELET 167 x1000/uL (130-400); RED BLOOD CELL COUNT 2.61 mill/uL (4.7-6.1); RED CELL DISTRIBUTION WIDTH 15.7 % (11.6-14.6)
[2023-07-29 06:01] LABS: DIFFERENTIAL COMMENT 1
[2023-07-29 06:04] LABS: CHLORIDE 115 mEq/L (98-107); INDEX HEMOLYSI 1 (1-3); INDEX ICTERIC 1 (1-4); INDEX LIPEMIC 1 (1-3); POTASSIUM 3.8 mEq/L (3.5-5.1); SODIUM 141 mEq/L (136-145)
[2023-07-29 06:08] LABS: CALCIUM 7.6 mg/dL (8.5-10.1); CARBON DIOXIDE 26 mEq/L (21-32); CREATININE 0.5 mg/dL (0.6-1.3); GLUCOSE 113 mg/dL (70-105); UREA NITROGEN BLOOD 11 mg/dL (7-21)
[2023-07-29 07:28] LABS: ANISOCYTOSIS 1+; ATYPICAL LYMPHOCYTES 1; NUCLEATED RED BLOOD CELLS 1 /100 WBC; PLATELET ESTIMATE NORMAL
[2023-07-29 07:59] LABS: BG CARBOXYHEMOGLOBIN 0.3 % (0.5-1.5); BG DEOXYHEMOGLOBIN 1.6 % (0.0-5.0); BG HCO3 ACT 25.4 mmol/L (22.0-26.0); BG METHEMOGLOBIN 0.5 % (0.0-1.5); BG OXYGEN SATURATION 98.4 % (92.0-98.5); BG OXYHEMOGLOBIN 97.6 % (94.0-97.0); BG PCO2 39.3 mmHg (35.0-45.0); BG PH 7.428 (7.350-7.450); BG PO2 146.5 mmHg (75.0-100.0); BG SAMPLE SITE RIGHT RADIAL; BG TOTAL HEMOGLOBIN 7.2 g/dL (12.0-18.0); BG VENT MODE VENT - AC
[2023-07-29] MEDS: LORAZEPAM 2MG/ML CPJ IV PRN ×2 (08:20→20:57)
[2023-07-29] MEDS: PANTOPRAZOLE SODIUM 40 MG/VIAL IV SCH ×2 (08:20→17:05)
[2023-07-29 10:25] LABS: BG BASE EXCESS -0.3 mmol/L (-2.0-2.0); BG CARBOXYHEMOGLOBIN 0.3 % (0.5-1.5); BG DEOXYHEMOGLOBIN 1.9 % (0.0-5.0); BG FRACTION INSPIRED OXYGEN 35; BG HCO3 ACT 23.1 mmol/L (22.0-26.0); BG METHEMOGLOBIN 0.1 % (0.0-1.5); BG OXYGEN SATURATION 98.1 % (92.0-98.5); BG OXYHEMOGLOBIN 97.7 % (94.0-97.0); BG PCO2 32.8 mmHg (35.0-45.0); BG PH 7.465 (7.350-7.450); BG PO2 139.3 mmHg (75.0-100.0); BG SAMPLE SITE RIGHT RADIAL; BG TOTAL HEMOGLOBIN 9.6 g/dL (12.0-18.0); BG VENT MODE VENT - CPAP
[2023-07-29] MEDS: ASCORBIC ACID 500 MG TABLET PO SCH ×2 (11:00→21:00)
[2023-07-29] MEDS: CYANOCOBALAMIN 1000MCG/ML VIAL SUBCUT SCH (12:00)
[2023-07-29 12:28] LABS: HEMATOCRIT 25.4 % (42.0-52.0); HEMOGLOBIN 8.4 g/dL (14.0-18.0)
[2023-07-29] MEDS: DEXTROSE 5% WATER 1,000 ML IV SCH (13:58)
[2023-07-29] MEDS: FERROUS SULFATE 325MG TABLET PO SCH (16:55)
[2023-07-29 19:31] LABS: HEMATOCRIT 24.5 % (42.0-52.0); HEMOGLOBIN 8.1 g/dL (14.0-18.0)
[2023-07-30] VITALS (16 sets, daily range): BP systolic 98–157; BP diastolic 64–104; PULSE 79–111; RESP 10–55; TEMP 97.7–99.5
[2023-07-30 00:41] LABS: HEMATOCRIT 25.1 % (42.0-52.0); HEMOGLOBIN 8.6 g/dL (14.0-18.0)
[2023-07-30] MEDS: DEXTROSE 5% WATER 1,000 ML IV SCH (02:30)
[2023-07-30] MEDS: ONDANSETRON HCL 4MG/2ML INJ IV PRN (03:04)
[2023-07-30] MEDS: PIPERACILLIN/TAZOBACTAM 3.375G in DEXT 5% WATER 50ML IV SCH ×3 (05:43→22:00)
[2023-07-30 07:40] LABS: HEMATOCRIT 24.6 % (42.0-52.0); HEMOGLOBIN 8.4 g/dL (14.0-18.0)
[2023-07-30] MEDS: FERROUS SULFATE 325MG TABLET PO SCH ×2 (08:10→16:04)
[2023-07-30] MEDS: IPRATROPIUM BROMIDE (0.02%) 0.5MG/2.5ML NEB HHN SCH (08:22)
[2023-07-30] MEDS: ASCORBIC ACID 500 MG TABLET PO SCH ×2 (09:00→21:00)
[2023-07-30] MEDS: LORAZEPAM 2MG/ML CPJ IV PRN ×2 (09:28→21:00)
[2023-07-30] MEDS: PANTOPRAZOLE SODIUM 40 MG/VIAL IV SCH ×2 (09:28→16:04)
[2023-07-30] MEDS: CYANOCOBALAMIN 1000MCG/ML VIAL SUBCUT SCH (09:28)
[2023-07-30 11:06] LABS: HEMATOCRIT. 24.9 % (42.0-52.0); HEMOGLOBIN. 8.5 g/dL (14.0-18.0); MEAN CORPUSCULAR HEMOGLOBIN 30.2 pg (28.0-32.0); MEAN CORPUSCULAR HGB CONC 34.3 g/dL (31.0-37.0); MEAN CORPUSCULAR VOLUME 88.2 fL (80.0-94.0); PLATELET 234 x1000/uL (130-400); RED BLOOD CELL COUNT 2.82 mill/uL (4.7-6.1); RED CELL DISTRIBUTION WIDTH 15.3 % (11.6-14.6)
[2023-07-30 11:07] LABS: DIFFERENTIAL COMMENT 1
[2023-07-30] MEDS ORDERED: DEXT 5%/0.9% NACL 1,000 ML IV SCH (11:15)
[2023-07-30] MEDS ORDERED: LORAZEPAM 2MG/ML CPJ IV NR (11:30)
[2023-07-30 11:31] LABS: CHLORIDE 110 mEq/L (98-107); INDEX HEMOLYSI 1 (1-3); INDEX ICTERIC 1 (1-4); INDEX LIPEMIC 1 (1-3); POTASSIUM 3.3 mEq/L (3.5-5.1); SODIUM 138 mEq/L (136-145)
[2023-07-30 11:39] LABS: ALANINE AMINOTRANSFERASE 38 IU/L (13-61); ALBUMIN 2.5 g/dL (3.4-5.0); ASPARTATE AMINOTRANSFERASE 39 IU/L (15-37); BILIRUBIN TOTAL 1.1 mg/dL (0.1-1.0); CALCIUM 7.9 mg/dL (8.5-10.1); CARBON DIOXIDE 25 mEq/L (21-32); CREATININE 0.6 mg/dL (0.6-1.3); GLUCOSE 85 mg/dL (70-105); PROTEIN TOTAL 5.9 g/dL (6.0-8.3); UREA NITROGEN BLOOD 9 mg/dL (7-21)
[2023-07-30 12:32] LABS: NUCLEATED RED BLOOD CELLS 1 /100 WBC; PLATELET ESTIMATE NORMAL
[2023-07-30 12:33] LABS: ANISOCYTOSIS 1+
[2023-07-30] MEDS ORDERED: NICARDIPINE 40MG/200ML PREMIX 200 ML IV PRN (15:00)
[2023-07-30] MEDS ORDERED: NICARDIPINE 50 MG in SODIUM CHLORIDE 0.9% 250 ML IV PRN (15:30)
[2023-07-30] MEDS ORDERED: POTASSIUM CHLORIDE INJ 40 MEQ in DEXT 5% WATER 250 ML IV ONE (15:30)
[2023-07-30] MEDS: KCL 20MEQ/100ML X 2 FOR TOTAL KCL 40MEQ/200ML IV SCH ×2 (16:03→18:04)
[2023-07-30] MEDS ORDERED: LEVETIRACETAM 500 MG in SODIUM CHLORIDE 0.9% 100 ML IV SCH ×2 (16:15→21:00)
[2023-07-30] MEDS ORDERED: NICARDIPINE 50 MG in SODIUM CHLORIDE 0.9% 230 ML IV PRN (17:30)
[2023-07-30] MEDS: LEVETIRACETAM 500MG PREMIX 100 ML IV SCH (18:05)
[2023-07-30] MEDS: DEXT 5%/LACTATED RINGERS 1,000 ML IV SCH (18:05)
[2023-07-30 20:15] LABS: HEMATOCRIT 26.8 % (42.0-52.0); HEMOGLOBIN 9.5 g/dL (14.0-18.0)
[2023-07-30] MEDS: THIAMINE HCL 500 MG in SODIUM CHLORIDE 0.9% 95 ML IV SCH (22:00)
[2023-07-31] VITALS (28 sets, daily range): BP systolic 106–169; BP diastolic 59–140; PULSE 50–109; RESP 12–43; TEMP 97.7–97.8
[2023-07-31 02:52] LABS: HEMATOCRIT 27.7 % (42.0-52.0); HEMOGLOBIN 9.3 g/dL (14.0-18.0)
[2023-07-31] MEDS: LORAZEPAM 2MG/ML CPJ IV PRN (05:15)
[2023-07-31 05:41] LABS: HEMATOCRIT 25.9 % (42.0-52.0); HEMOGLOBIN 8.7 g/dL (14.0-18.0)
[2023-07-31] MEDS: FERROUS SULFATE 325MG TABLET PO SCH ×2 (07:00→17:00)
[2023-07-31] MEDS: CYANOCOBALAMIN 1000MCG/ML VIAL SUBCUT SCH (08:32)
[2023-07-31] MEDS: PANTOPRAZOLE SODIUM 40 MG/VIAL IV SCH ×2 (08:32→17:23)
[2023-07-31] MEDS: MORPHINE SULFATE 2 MG/ML CPJ (NOT FOR IM USE) IV PRN ×4 (08:37→23:11)
[2023-07-31] MEDS: ASCORBIC ACID 500 MG TABLET PO SCH ×2 (09:00→21:00)
[2023-07-31] MEDS ORDERED: NALOXONE HCL 0.4MG/ML VIAL IV PRN (09:30)
[2023-07-31] MEDS: DEXT 5%/LACTATED RINGERS 1,000 ML IV SCH (11:39)
[2023-07-31] MEDS: LEVETIRACETAM 500MG PREMIX 100 ML IV SCH ×2 (11:39→22:30)
[2023-07-31] MEDS: THIAMINE HCL 500 MG in SODIUM CHLORIDE 0.9% 95 ML IV SCH (22:30)
[2023-08-01] VITALS (12 sets, daily range): BP systolic 108–165; BP diastolic 26–79; PULSE 90–125; RESP 14–31; TEMP 97.6–98.8
[2023-08-01] MEDS: DEXT 5%/LACTATED RINGERS 1,000 ML IV SCH ×2 (01:00→20:33)
[2023-08-01] MEDS: MORPHINE SULFATE 2 MG/ML CPJ (NOT FOR IM USE) IV PRN ×3 (02:10→17:12)
[2023-08-01] MEDS: ONDANSETRON HCL 4MG/2ML INJ IV PRN ×2 (02:11→20:25)
[2023-08-01 06:37] LABS: HEMATOCRIT. 28.2 % (42.0-52.0); HEMOGLOBIN. 9.7 g/dL (14.0-18.0); MEAN CORPUSCULAR HEMOGLOBIN 29.5 pg (28.0-32.0); MEAN CORPUSCULAR HGB CONC 34.2 g/dL (31.0-37.0); MEAN CORPUSCULAR VOLUME 86.1 fL (80.0-94.0); MEAN PLATELET VOLUME 7.6 fl (7.4-10.4); PLATELET 422 x1000/uL (130-400); RED BLOOD CELL COUNT 3.28 mill/uL (4.7-6.1); RED CELL DISTRIBUTION WIDTH 15.1 % (11.6-14.6); WHITE BLOOD COUNT 14.3 x1000/uL (4.5-11.0)
[2023-08-01 06:43] LABS: DIFFERENTIAL COMMENT 1
[2023-08-01] MEDS: FERROUS SULFATE 325MG TABLET PO SCH ×2 (08:00→17:12)
[2023-08-01] MEDS: ASCORBIC ACID 500 MG TABLET PO SCH ×2 (09:00→20:25)
[2023-08-01] MEDS ORDERED: HYDRALAZINE 20MG/ML VIAL IV NR (09:30)
[2023-08-01] MEDS: PANTOPRAZOLE SODIUM 40 MG/VIAL IV SCH ×2 (10:07→17:15)
[2023-08-01] MEDS: CYANOCOBALAMIN 1000MCG/ML VIAL SUBCUT SCH (10:07)
[2023-08-01] MEDS: LEVETIRACETAM 500MG PREMIX 100 ML IV SCH ×2 (10:08→20:29)
[2023-08-01 15:29] LABS: CHLORIDE 107 mEq/L (98-107); INDEX HEMOLYSI 1 (1-3); INDEX ICTERIC 1 (1-4); INDEX LIPEMIC 1 (1-3); POTASSIUM 3.6 mEq/L (3.5-5.1); SODIUM 138 mEq/L (136-145)
[2023-08-01 15:40] LABS: CALCIUM 8.9 mg/dL (8.5-10.1); CARBON DIOXIDE 21 mEq/L (21-32); CREATININE 0.5 mg/dL (0.6-1.3); GLUCOSE 95 mg/dL (70-105); UREA NITROGEN BLOOD 11 mg/dL (7-21)
[2023-08-01 18:56] LABS: PLATELET ESTIMATE INCREASED
[2023-08-01 18:58] LABS: ANISOCYTOSIS 1+
[2023-08-01 22:17] LABS: INDEX HEMOLYSI 1 (1-3)
[2023-08-01 22:20] LABS: AMMONIA 53 uMol/L (<32)
[2023-08-01] MEDS: THIAMINE HCL 500 MG in SODIUM CHLORIDE 0.9% 95 ML IV SCH (22:36)
[2023-08-02] VITALS (12 sets, daily range): BP systolic 106–163; BP diastolic 38–100; PULSE 65–109; RESP 14–120; TEMP 97–98.3
[2023-08-02] MEDS: MORPHINE SULFATE 2 MG/ML CPJ (NOT FOR IM USE) IV PRN (02:26)
[2023-08-02 06:27] LABS: BASOPHILS % 0.3 % (0.0-2.0); EOSINOPHILS % 1.8 % (0.0-5.0); HEMATOCRIT. 26.9 % (42.0-52.0); HEMOGLOBIN. 9.5 g/dL (14.0-18.0); LYMPHOCYTES % 8.8 % (20.0-50.0); MEAN CORPUSCULAR HEMOGLOBIN 30.5 pg (28.0-32.0); MEAN CORPUSCULAR HGB CONC 35.1 g/dL (31.0-37.0); MEAN CORPUSCULAR VOLUME 86.7 fL (80.0-94.0); MEAN PLATELET VOLUME 7.3 fl (7.4-10.4); NEUTROPHILS % 83.1 % (40.0-76.0); PLATELET 446 x1000/uL (130-400); RED BLOOD CELL COUNT 3.11 mill/uL (4.7-6.1); RED CELL DISTRIBUTION WIDTH 15.5 % (11.6-14.6); WHITE BLOOD COUNT 9.7 x1000/uL (4.5-11.0)
[2023-08-02] MEDS: FERROUS SULFATE 325MG TABLET PO SCH ×2 (08:00→17:03)
[2023-08-02] MEDS: ASCORBIC ACID 500 MG TABLET PO SCH ×2 (08:12→21:00)
[2023-08-02] MEDS: CYANOCOBALAMIN 1000MCG/ML VIAL SUBCUT SCH (09:40)
[2023-08-02] MEDS: LEVETIRACETAM 500MG PREMIX 100 ML IV SCH (09:40)
[2023-08-02] MEDS: PANTOPRAZOLE SODIUM 40 MG/VIAL IV SCH ×2 (09:40→17:35)
[2023-08-02] MEDS: LACTULOSE 20G/30ML UDC PO SCH ×3 (09:45→22:00)
[2023-08-02] MEDS: SODIUM CHLORIDE 0.9% 1,000 ML IV SCH (10:39)
[2023-08-03] VITALS (12 sets, daily range): BP systolic 120–158; BP diastolic 48–93; PULSE 70–110; RESP 13–29; TEMP 97.7–98.2
[2023-08-03] MEDS: SODIUM CHLORIDE 0.9% 1,000 ML IV SCH ×2 (00:19→13:38)
[2023-08-03] MEDS: MORPHINE SULFATE 2 MG/ML CPJ (NOT FOR IM USE) IV PRN ×3 (00:28→21:22)
[2023-08-03] MEDS: LEVETIRACETAM 500MG PREMIX 100 ML IV SCH ×3 (00:29→21:22)
[2023-08-03] MEDS: THIAMINE HCL 500 MG in SODIUM CHLORIDE 0.9% 95 ML IV SCH (00:29)
[2023-08-03] MEDS: LACTULOSE 20G/30ML UDC PO SCH ×3 (06:00→21:12)
[2023-08-03] MEDS: FERROUS SULFATE 325MG TABLET PO SCH ×2 (08:00→17:01)
[2023-08-03] MEDS: ASCORBIC ACID 500 MG TABLET PO SCH ×2 (08:59→21:00)
[2023-08-03] MEDS ORDERED: MORPHINE SULFATE 4 MG/ML CPJ (NOT FOR IM USE) IV PRN (09:00)
[2023-08-03] MEDS: CYANOCOBALAMIN 1000MCG/ML VIAL SUBCUT SCH (09:11)
[2023-08-03] MEDS: PANTOPRAZOLE SODIUM 40 MG/VIAL IV SCH ×2 (09:11→17:38)
[2023-08-03 12:46] LABS: BASOPHILS % 0.4 % (0.0-2.0); HEMATOCRIT. 30.2 % (42.0-52.0); HEMOGLOBIN. 10.1 g/dL (14.0-18.0); LYMPHOCYTES % 7.6 % (20.0-50.0); MEAN CORPUSCULAR HEMOGLOBIN 29.4 pg (28.0-32.0); MEAN CORPUSCULAR HGB CONC 33.6 g/dL (31.0-37.0); MEAN CORPUSCULAR VOLUME 87.4 fL (80.0-94.0); MEAN PLATELET VOLUME 7.4 fl (7.4-10.4); MONOCYTES % 5.2 % (2.0-8.0); NEUTROPHILS % 85.8 % (40.0-76.0); PLATELET 561 x1000/uL (130-400); RED BLOOD CELL COUNT 3.45 mill/uL (4.7-6.1); RED CELL DISTRIBUTION WIDTH 15.1 % (11.6-14.6); WHITE BLOOD COUNT 10.9 x1000/uL (4.5-11.0)
[2023-08-03 12:53] LABS: CHLORIDE 112 mEq/L (98-107); INDEX HEMOLYSI 1 (1-3); INDEX ICTERIC 1 (1-4); INDEX LIPEMIC 1 (1-3); POTASSIUM 3.4 mEq/L (3.5-5.1); SODIUM 142 mEq/L (136-145)
[2023-08-03 12:57] LABS: CALCIUM 8.6 mg/dL (8.5-10.1); CARBON DIOXIDE 21 mEq/L (21-32); CREATININE 0.6 mg/dL (0.6-1.3); GLUCOSE 85 mg/dL (70-105); UREA NITROGEN BLOOD 9 mg/dL (7-21)
[2023-08-04] VITALS (12 sets, daily range): BP systolic 117–156; BP diastolic 38–90; PULSE 69–139; RESP 11–33; TEMP 97–99.2
[2023-08-04] MEDS: MORPHINE SULFATE 2 MG/ML CPJ (NOT FOR IM USE) IV PRN ×4 (02:47→16:16)
[2023-08-04] MEDS: SODIUM CHLORIDE 0.9% 1,000 ML IV SCH ×2 (02:49→11:47)
[2023-08-04] MEDS: FERROUS SULFATE 325MG TABLET PO SCH ×2 (05:20→17:49)
[2023-08-04] MEDS: LACTULOSE 20G/30ML UDC PO SCH ×3 (05:20→22:00)
[2023-08-04 07:57] LABS: HEMOGLOBIN. 10.8 g/dL (14.0-18.0); MEAN CORPUSCULAR HEMOGLOBIN 30.1 pg (28.0-32.0); MEAN CORPUSCULAR HGB CONC 33.8 g/dL (31.0-37.0); MEAN CORPUSCULAR VOLUME 88.9 fL (80.0-94.0); MEAN PLATELET VOLUME 7.1 fl (7.4-10.4); PLATELET 610 x1000/uL (130-400); RED CELL DISTRIBUTION WIDTH 15.2 % (11.6-14.6); WHITE BLOOD COUNT 11.2 x1000/uL (4.5-11.0)
[2023-08-04 08:07] LABS: DIFFERENTIAL COMMENT 1
[2023-08-04] MEDS: ASCORBIC ACID 500 MG TABLET PO SCH ×2 (09:00→21:00)
[2023-08-04] MEDS: PANTOPRAZOLE SODIUM 40 MG/VIAL IV SCH ×2 (09:49→16:21)
[2023-08-04] MEDS: LEVETIRACETAM 500MG PREMIX 100 ML IV SCH ×2 (09:49→21:29)
[2023-08-04] MEDS: CYANOCOBALAMIN 1000MCG/ML VIAL SUBCUT SCH (09:49)
[2023-08-04] MEDS ORDERED: POTASSIUM CHLORIDE 20MEQ TABLET SR PO NR (10:45)
[2023-08-04 13:43] LABS: ANISOCYTOSIS 1+; PLATELET ESTIMATE INCREASED
[2023-08-05] VITALS (13 sets, daily range): BP systolic 120–185; BP diastolic 68–94; PULSE 79–122; RESP 12–27; TEMP 97.8–100.2
[2023-08-05] MEDS: SODIUM CHLORIDE 0.9% 1,000 ML IV SCH ×2 (00:45→12:48)
[2023-08-05] MEDS: LACTULOSE 20G/30ML UDC PO SCH ×3 (05:25→21:45)
[2023-08-05 06:24] LABS: CALCIUM 8.7 mg/dL (8.5-10.1); CHLORIDE 113 mEq/L (98-107); INDEX HEMOLYSI 1 (1-3); INDEX ICTERIC 1 (1-4); INDEX LIPEMIC 1 (1-3); POTASSIUM 3.3 mEq/L (3.5-5.1); SODIUM 143 mEq/L (136-145)
[2023-08-05 06:28] LABS: CARBON DIOXIDE 24 mEq/L (21-32); CREATININE 0.5 mg/dL (0.6-1.3); GLUCOSE 99 mg/dL (70-105); PHOSPHORUS 2.8 mg/dL (2.5-4.9); UREA NITROGEN BLOOD 12 mg/dL (7-21)
[2023-08-05 06:45] LABS: HEMATOCRIT. 30.9 % (42.0-52.0); MEAN CORPUSCULAR HEMOGLOBIN 28.3 pg (28.0-32.0); MEAN CORPUSCULAR HGB CONC 32.4 g/dL (31.0-37.0); MEAN CORPUSCULAR VOLUME 87.4 fL (80.0-94.0); MEAN PLATELET VOLUME 7.5 fl (7.4-10.4); PLATELET 573 x1000/uL (130-400); RED BLOOD CELL COUNT 3.54 mill/uL (4.7-6.1); RED CELL DISTRIBUTION WIDTH 15.2 % (11.6-14.6); WHITE BLOOD COUNT 27.5 x1000/uL (4.5-11.0)
[2023-08-05 07:42] LABS: DIFFERENTIAL COMMENT 1
[2023-08-05] MEDS: FERROUS SULFATE 325MG TABLET PO SCH ×2 (08:00→17:26)
[2023-08-05] MEDS: ASCORBIC ACID 500 MG TABLET PO SCH ×2 (09:00→21:44)
[2023-08-05] MEDS: PANTOPRAZOLE SODIUM 40 MG/VIAL IV SCH ×2 (09:34→17:26)
[2023-08-05] MEDS: CYANOCOBALAMIN 1000MCG/ML VIAL SUBCUT SCH (09:35)
[2023-08-05] MEDS: LEVETIRACETAM 500MG PREMIX 100 ML IV SCH ×2 (09:35→21:44)
[2023-08-05] MEDS: PIPERACILLIN/TAZOBACTAM 3.375 G in DEXTROSE 5% WATER 50 ML IV SCH ×2 (16:16→21:44)
[2023-08-05 17:30] LABS: PLATELET ESTIMATE INCREASED
[2023-08-05] MEDS ORDERED: POTASSIUM CHLORIDE INJ 40 MEQ in DEXT 5% WATER 250 ML IV ONE (19:45)
[2023-08-05] MEDS: KCL 20MEQ/100ML X 2 FOR TOTAL KCL 40MEQ/200ML IV SCH ×2 (21:44→23:54)
[2023-08-05] MEDS: DIAZEPAM 2 MG TABLET PO PRN (21:45)
[2023-08-06] VITALS (11 sets, daily range): BP systolic 120–156; BP diastolic 58–94; PULSE 75–95; RESP 9–24; TEMP 97.4–98.4
[2023-08-06] MEDS: SODIUM CHLORIDE 0.9% 1,000 ML IV SCH ×2 (05:36→13:22)
[2023-08-06] MEDS: LACTULOSE 20G/30ML UDC PO SCH ×3 (05:36→21:21)
[2023-08-06] MEDS: PIPERACILLIN/TAZOBACTAM 3.375 G in DEXTROSE 5% WATER 50 ML IV SCH ×3 (05:36→21:21)
[2023-08-06 05:40] LABS: AMMONIA 24 uMol/L (<32)
[2023-08-06 06:06] LABS: CHLORIDE 114 mEq/L (98-107); INDEX HEMOLYSI 1 (1-3); INDEX ICTERIC 1 (1-4); INDEX LIPEMIC 1 (1-3); POTASSIUM 3.1 mEq/L (3.5-5.1); SODIUM 143 mEq/L (136-145)
[2023-08-06 06:12] LABS: HEMATOCRIT. 29.7 % (42.0-52.0); HEMOGLOBIN. 9.9 g/dL (14.0-18.0); MEAN CORPUSCULAR HEMOGLOBIN 28.9 pg (28.0-32.0); MEAN CORPUSCULAR HGB CONC 33.2 g/dL (31.0-37.0); MEAN CORPUSCULAR VOLUME 87.1 fL (80.0-94.0); MEAN PLATELET VOLUME 7.5 fl (7.4-10.4); PLATELET 488 x1000/uL (130-400); RED BLOOD CELL COUNT 3.41 mill/uL (4.7-6.1); WHITE BLOOD COUNT 11.3 x1000/uL (4.5-11.0)
[2023-08-06 06:14] LABS: CALCIUM 8.4 mg/dL (8.5-10.1); CARBON DIOXIDE 25 mEq/L (21-32); CREATININE 0.5 mg/dL (0.6-1.3); GLUCOSE 107 mg/dL (70-105); UREA NITROGEN BLOOD 10 mg/dL (7-21)
[2023-08-06 06:40] LABS: DIFFERENTIAL COMMENT 1
[2023-08-06] MEDS: ASCORBIC ACID 500 MG TABLET PO SCH ×2 (08:36→21:21)
[2023-08-06] MEDS: FERROUS SULFATE 325MG TABLET PO SCH ×2 (08:36→18:07)
[2023-08-06] MEDS: PANTOPRAZOLE SODIUM 40 MG/VIAL IV SCH ×2 (08:36→18:07)
[2023-08-06] MEDS: LEVETIRACETAM 500MG PREMIX 100 ML IV SCH ×2 (08:37→21:21)
[2023-08-06] MEDS ORDERED: POTASSIUM CHLORIDE INJ 40 MEQ in DEXT 5% WATER 500 ML IV SCH (11:00)
[2023-08-06] MEDS: DIAZEPAM 2 MG TABLET PO PRN ×2 (13:22→21:21)
[2023-08-06 16:06] LABS: PLATELET ESTIMATE INCREASED
[2023-08-07] VITALS (11 sets, daily range): BP systolic 107–153; BP diastolic 56–98; PULSE 71–114; RESP 7–52; TEMP 97.8–100.2
[2023-08-07] MEDS: SODIUM CHLORIDE 0.9% 1,000 ML IV SCH ×2 (02:28→16:50)
[2023-08-07] MEDS: LACTULOSE 20G/30ML UDC PO SCH ×4 (05:33→22:05)
[2023-08-07] MEDS: PIPERACILLIN/TAZOBACTAM 3.375 G in DEXTROSE 5% WATER 50 ML IV SCH ×3 (05:33→22:05)
[2023-08-07 05:59] LABS: HEMATOCRIT. 30.9 % (42.0-52.0); HEMOGLOBIN. 10.5 g/dL (14.0-18.0); MEAN CORPUSCULAR HEMOGLOBIN 29.3 pg (28.0-32.0); MEAN CORPUSCULAR HGB CONC 33.9 g/dL (31.0-37.0); MEAN CORPUSCULAR VOLUME 86.3 fL (80.0-94.0); MEAN PLATELET VOLUME 7.7 fl (7.4-10.4); PLATELET 513 x1000/uL (130-400); RED BLOOD CELL COUNT 3.58 mill/uL (4.7-6.1); RED CELL DISTRIBUTION WIDTH 14.7 % (11.6-14.6); WHITE BLOOD COUNT 10.8 x1000/uL (4.5-11.0)
[2023-08-07 06:07] LABS: INDEX HEMOLYSI 1 (1-3); INDEX ICTERIC 1 (1-4); INDEX LIPEMIC 1 (1-3)
[2023-08-07 06:13] LABS: DIFFERENTIAL COMMENT 1
[2023-08-07 06:18] LABS: CALCIUM 8.1 mg/dL (8.5-10.1); CARBON DIOXIDE 26 mEq/L (21-32); CHLORIDE 111 mEq/L (98-107); CREATININE 0.6 mg/dL (0.6-1.3); GLUCOSE 96 mg/dL (70-105); POTASSIUM 3.1 mEq/L (3.5-5.1); SODIUM 141 mEq/L (136-145); UREA NITROGEN BLOOD 7 mg/dL (7-21)
[2023-08-07] MEDS: PANTOPRAZOLE SODIUM 40 MG/VIAL IV SCH ×2 (08:24→16:51)
[2023-08-07] MEDS: DIAZEPAM 2 MG TABLET PO PRN (08:24)
[2023-08-07] MEDS: ASCORBIC ACID 500 MG TABLET PO SCH ×3 (08:24→22:05)
[2023-08-07] MEDS: FERROUS SULFATE 325MG TABLET PO SCH ×2 (08:25→16:51)
[2023-08-07] MEDS: LEVETIRACETAM 500MG PREMIX 100 ML IV SCH ×2 (08:25→22:04)
[2023-08-07 09:32] LABS: ANISOCYTOSIS 1+; PLATELET ESTIMATE MARKEDLY INCREASED
[2023-08-07] MEDS ORDERED: POTASSIUM CHLORIDE INJ 60 MEQ in DEXT 5% WATER 500 ML IV ONE (11:00)
[2023-08-07] MEDS: QUETIAPINE FUMARATE 25MG TABLET PO SCH ×4 (11:50→22:06)
[2023-08-07] MEDS: KCL 20MEQ/100ML PREMIX 100 ML IV SCH ×3 (12:05→16:51)
[2023-08-07] MEDS: ACETAMINOPHEN 325MG TABLET PO PRN (12:06)
[2023-08-08] VITALS (17 sets, daily range): BP systolic 99–158; BP diastolic 41–90; PULSE 75–101; RESP 9–23; TEMP 97.4–98.4
[2023-08-08] MEDS: LACTULOSE 20G/30ML UDC PO SCH ×3 (06:00→22:00)
[2023-08-08 06:57] LABS: HEMATOCRIT. 29.4 % (42.0-52.0); HEMOGLOBIN. 10.1 g/dL (14.0-18.0); MEAN CORPUSCULAR HEMOGLOBIN 29.4 pg (28.0-32.0); MEAN CORPUSCULAR HGB CONC 34.2 g/dL (31.0-37.0); MEAN CORPUSCULAR VOLUME 85.8 fL (80.0-94.0); MEAN PLATELET VOLUME 7.7 fl (7.4-10.4); PLATELET 433 x1000/uL (130-400); RED BLOOD CELL COUNT 3.42 mill/uL (4.7-6.1); RED CELL DISTRIBUTION WIDTH 14.5 % (11.6-14.6); WHITE BLOOD COUNT 8.5 x1000/uL (4.5-11.0)
[2023-08-08 06:58] LABS: DIFFERENTIAL COMMENT 1
[2023-08-08] MEDS: PIPERACILLIN/TAZOBACTAM 3.375 G in DEXTROSE 5% WATER 50 ML IV SCH ×3 (07:12→22:20)
[2023-08-08] MEDS: QUETIAPINE FUMARATE 25MG TABLET PO SCH ×2 (07:13→14:59)
[2023-08-08 07:15] LABS: CHLORIDE 111 mEq/L (98-107); INDEX HEMOLYSI 1 (1-3); INDEX ICTERIC 1 (1-4); INDEX LIPEMIC 1 (1-3); POTASSIUM 3.2 mEq/L (3.5-5.1); SODIUM 141 mEq/L (136-145)
[2023-08-08 07:21] LABS: CALCIUM 8.4 mg/dL (8.5-10.1); CARBON DIOXIDE 25 mEq/L (21-32); CREATININE 0.5 mg/dL (0.6-1.3); GLUCOSE 98 mg/dL (70-105); UREA NITROGEN BLOOD 8 mg/dL (7-21)
[2023-08-08] MEDS: FERROUS SULFATE 325MG TABLET PO SCH ×2 (09:09→16:49)
[2023-08-08] MEDS: PANTOPRAZOLE SODIUM 40 MG/VIAL IV SCH ×2 (09:09→16:48)
[2023-08-08] MEDS: LEVETIRACETAM 500MG PREMIX 100 ML IV SCH ×2 (09:09→21:05)
[2023-08-08] MEDS: ASCORBIC ACID 500 MG TABLET PO SCH (09:09)
[2023-08-08] MEDS: SODIUM CHLORIDE 0.9% 1,000 ML IV SCH ×2 (09:12→15:45)
[2023-08-08] MEDS: POTASSIUM CHLORIDE 20MEQ TABLET SR PO SCH ×2 (14:28→16:48)
[2023-08-08 16:24] LABS: PLATELET ESTIMATE INCREASED
[2023-08-09] VITALS (12 sets, daily range): BP systolic 102–143; BP diastolic 58–101; PULSE 79–98; RESP 10–24; TEMP 97–98.9
[2023-08-09] MEDS: ASCORBIC ACID 500 MG TABLET PO SCH (01:51)
[2023-08-09] MEDS: DIAZEPAM 2 MG TABLET PO PRN ×2 (01:51→12:08)
[2023-08-09] MEDS: QUETIAPINE FUMARATE 25MG TABLET PO SCH (01:52)
[2023-08-09] MEDS: SODIUM CHLORIDE 0.9% 1,000 ML IV SCH ×2 (04:15→16:53)
[2023-08-09] MEDS: PIPERACILLIN/TAZOBACTAM 3.375 G in DEXTROSE 5% WATER 50 ML IV SCH ×3 (05:58→21:34)
[2023-08-09] MEDS: FERROUS SULFATE 325MG TABLET PO SCH ×2 (08:11→18:46)
[2023-08-09] MEDS: POTASSIUM CHLORIDE 20MEQ TABLET SR PO SCH ×2 (08:12→16:54)
[2023-08-09] MEDS: PANTOPRAZOLE SODIUM 40 MG/VIAL IV SCH ×2 (08:12→16:54)
[2023-08-09] MEDS: LEVETIRACETAM 500MG PREMIX 100 ML IV SCH ×2 (08:12→21:33)
[2023-08-09 08:47] LABS: BASOPHILS % 0.9 % (0.0-2.0); EOSINOPHILS % 1.6 % (0.0-5.0); LYMPHOCYTES % 7.6 % (20.0-50.0); MEAN CORPUSCULAR HEMOGLOBIN 28.7 pg (28.0-32.0); MEAN CORPUSCULAR HGB CONC 33.3 g/dL (31.0-37.0); MEAN CORPUSCULAR VOLUME 86.1 fL (80.0-94.0); MEAN PLATELET VOLUME 7.6 fl (7.4-10.4); MONOCYTES % 6.3 % (2.0-8.0); NEUTROPHILS % 83.6 % (40.0-76.0); PLATELET 475 x1000/uL (130-400); RED BLOOD CELL COUNT 3.83 mill/uL (4.7-6.1); RED CELL DISTRIBUTION WIDTH 14.8 % (11.6-14.6); WHITE BLOOD COUNT 9.4 x1000/uL (4.5-11.0)
[2023-08-09 09:23] LABS: CHLORIDE 109 mEq/L (98-107); INDEX HEMOLYSI 1 (1-3); INDEX ICTERIC 1 (1-4); INDEX LIPEMIC 1 (1-3); SODIUM 137 mEq/L (136-145)
[2023-08-09 09:32] LABS: ALANINE AMINOTRANSFERASE 44 IU/L (13-61); ALBUMIN 2.9 g/dL (3.4-5.0); ASPARTATE AMINOTRANSFERASE 29 IU/L (15-37); BILIRUBIN TOTAL 0.5 mg/dL (0.1-1.0); CALCIUM 8.8 mg/dL (8.5-10.1); CARBON DIOXIDE 25 mEq/L (21-32); CREATININE 0.4 mg/dL (0.6-1.3); GLUCOSE 99 mg/dL (70-105); PROTEIN TOTAL 6.9 g/dL (6.0-8.3); UREA NITROGEN BLOOD 7 mg/dL (7-21)
[2023-08-10] VITALS (16 sets, daily range): BP systolic 103–127; BP diastolic 65–80; PULSE 79–97; RESP 10–24; TEMP 97.8–98.2
[2023-08-10] MEDS: SODIUM CHLORIDE 0.9% 1,000 ML IV SCH ×2 (05:20→16:51)
[2023-08-10] MEDS: QUETIAPINE FUMARATE 25MG TABLET PO SCH ×3 (05:37→21:58)
[2023-08-10] MEDS: PIPERACILLIN/TAZOBACTAM 3.375 G in DEXTROSE 5% WATER 50 ML IV SCH (05:37)
[2023-08-10] MEDS: LACTULOSE 20G/30ML UDC PO SCH ×3 (05:37→21:58)
[2023-08-10] MEDS: ASCORBIC ACID 500 MG TABLET PO SCH ×2 (09:30→20:44)
[2023-08-10] MEDS: LEVETIRACETAM 500MG PREMIX 100 ML IV SCH ×2 (09:30→20:44)
[2023-08-10] MEDS: PANTOPRAZOLE SODIUM 40 MG/VIAL IV SCH ×2 (09:30→16:47)
[2023-08-10] MEDS: POTASSIUM CHLORIDE 20MEQ TABLET SR PO SCH ×2 (09:30→16:46)
[2023-08-10] MEDS: FERROUS SULFATE 325MG TABLET PO SCH ×2 (09:30→16:50)
[2023-08-10] MEDS: DIAZEPAM 2 MG TABLET PO PRN ×2 (12:49→20:44)
[2023-08-10] MEDS ORDERED: LORAZEPAM 2MG/ML CPJ IV NR (16:45)
[2023-08-11] VITALS (17 sets, daily range): BP systolic 110–186; BP diastolic 62–123; PULSE 78–110; RESP 8–25; TEMP 97.9–98.2
[2023-08-11] MEDS: SODIUM CHLORIDE 0.9% 1,000 ML IV SCH ×2 (04:45→18:04)
[2023-08-11] MEDS: LACTULOSE 20G/30ML UDC PO SCH ×3 (05:45→22:00)
[2023-08-11] MEDS: QUETIAPINE FUMARATE 25MG TABLET PO SCH ×3 (05:46→22:05)
[2023-08-11] MEDS: FERROUS SULFATE 325MG TABLET PO SCH ×2 (08:36→17:05)
[2023-08-11] MEDS: PANTOPRAZOLE SODIUM 40 MG/VIAL IV SCH ×2 (08:36→17:05)
[2023-08-11] MEDS: ASCORBIC ACID 500 MG TABLET PO SCH ×2 (08:36→21:05)
[2023-08-11] MEDS: POTASSIUM CHLORIDE 20MEQ TABLET SR PO SCH ×2 (08:36→17:05)
[2023-08-11] MEDS: LEVETIRACETAM 500MG PREMIX 100 ML IV SCH ×2 (08:37→21:04)
[2023-08-11] MEDS: DIAZEPAM 2 MG TABLET PO PRN (16:45)
[2023-08-12] VITALS (10 sets, daily range): BP systolic 117–148; BP diastolic 64–87; PULSE 72–108; RESP 12–19; TEMP 97.6–98.1
[2023-08-12] MEDS: DIAZEPAM 2 MG TABLET PO PRN ×3 (00:54→18:36)
[2023-08-12] MEDS: LACTULOSE 20G/30ML UDC PO SCH ×3 (06:00→21:00)
[2023-08-12] MEDS: QUETIAPINE FUMARATE 25MG TABLET PO SCH ×3 (06:35→21:35)
[2023-08-12] MEDS: SODIUM CHLORIDE 0.9% 1,000 ML IV SCH ×2 (07:15→21:00)
[2023-08-12 10:13] LABS: BASOPHILS % 1.1 % (0.0-2.0); EOSINOPHILS % 1.9 % (0.0-5.0); HEMATOCRIT. 32.6 % (42.0-52.0); HEMOGLOBIN. 11.1 g/dL (14.0-18.0); LYMPHOCYTES % 11.3 % (20.0-50.0); MEAN CORPUSCULAR HEMOGLOBIN 28.4 pg (28.0-32.0); MEAN CORPUSCULAR VOLUME 83.4 fL (80.0-94.0); MONOCYTES % 6.4 % (2.0-8.0); NEUTROPHILS % 79.3 % (40.0-76.0); PLATELET 385 x1000/uL (130-400); RED BLOOD CELL COUNT 3.91 mill/uL (4.7-6.1); WHITE BLOOD COUNT 6.2 x1000/uL (4.5-11.0)
[2023-08-12 10:35] LABS: CHLORIDE 95 mEq/L (98-107); INDEX HEMOLYSI 1 (1-3); INDEX ICTERIC 1 (1-4); INDEX LIPEMIC 1 (1-3); POTASSIUM 3.9 mEq/L (3.5-5.1); SODIUM 125 mEq/L (136-145)
[2023-08-12 10:42] LABS: ALANINE AMINOTRANSFERASE 51 IU/L (13-61); ASPARTATE AMINOTRANSFERASE 37 IU/L (15-37); BILIRUBIN TOTAL 0.6 mg/dL (0.1-1.0); CALCIUM 8.5 mg/dL (8.5-10.1); CARBON DIOXIDE 25 mEq/L (21-32); CREATININE 0.5 mg/dL (0.6-1.3); GLUCOSE 88 mg/dL (70-105); PROTEIN TOTAL 7.2 g/dL (6.0-8.3); UREA NITROGEN BLOOD 5 mg/dL (7-21)
[2023-08-12] MEDS: LEVETIRACETAM 500MG PREMIX 100 ML IV SCH ×2 (12:01→21:00)
[2023-08-12] MEDS: FERROUS SULFATE 325MG TABLET PO SCH ×2 (12:01→18:35)
[2023-08-12] MEDS: PANTOPRAZOLE SODIUM 40 MG/VIAL IV SCH ×2 (12:02→18:35)
[2023-08-12] MEDS: ASCORBIC ACID 500 MG TABLET PO SCH ×2 (12:02→21:00)
[2023-08-12] MEDS: POTASSIUM CHLORIDE 20MEQ TABLET SR PO SCH ×2 (12:02→18:36)
[2023-08-12] MEDS: ONDANSETRON HCL 4MG/2ML INJ IV PRN ×2 (12:07→18:35)
[2023-08-12] MEDS: ACETAMINOPHEN 325MG TABLET PO PRN ×2 (12:08→18:35)
[2023-08-12 13:27] LABS: CHLORIDE 91 mEq/L (98-107); INDEX HEMOLYSI 1 (1-3); INDEX ICTERIC 1 (1-4); INDEX LIPEMIC 1 (1-3); SODIUM 125 mEq/L (136-145)
[2023-08-12 13:28] LABS: CALCIUM 8.8 mg/dL (8.5-10.1)
[2023-08-12 13:32] LABS: CARBON DIOXIDE 22 mEq/L (21-32); CREATININE 0.5 mg/dL (0.6-1.3); GLUCOSE 95 mg/dL (70-105); UREA NITROGEN BLOOD 6 mg/dL (7-21)
[2023-08-13] VITALS (11 sets, daily range): BP systolic 104–147; BP diastolic 61–112; PULSE 74–95; RESP 11–20; TEMP 96.7–98
[2023-08-13 07:11] LABS: PROTHROMBIN TIME 11.2 sec (9.6-11.0)
[2023-08-13] MEDS: LACTULOSE 20G/30ML UDC PO SCH ×3 (07:16→21:37)
[2023-08-13] MEDS: QUETIAPINE FUMARATE 25MG TABLET PO SCH ×3 (07:16→21:40)
[2023-08-13 07:19] LABS: HEMATOCRIT. 33.3 % (42.0-52.0); HEMOGLOBIN. 11.4 g/dL (14.0-18.0); MEAN CORPUSCULAR HEMOGLOBIN 29.1 pg (28.0-32.0); MEAN CORPUSCULAR HGB CONC 34.3 g/dL (31.0-37.0); MEAN CORPUSCULAR VOLUME 84.8 fL (80.0-94.0); MEAN PLATELET VOLUME 8.2 fl (7.4-10.4); PLATELET 379 x1000/uL (130-400); RED BLOOD CELL COUNT 3.93 mill/uL (4.7-6.1); RED CELL DISTRIBUTION WIDTH 13.7 % (11.6-14.6)
[2023-08-13 07:52] LABS: DIFFERENTIAL COMMENT 1
[2023-08-13] MEDS: POTASSIUM CHLORIDE 20MEQ TABLET SR PO SCH ×2 (10:52→18:47)
[2023-08-13] MEDS: DIAZEPAM 2 MG TABLET PO PRN (10:52)
[2023-08-13] MEDS: ACETAMINOPHEN 325MG TABLET PO PRN (10:53)
[2023-08-13] MEDS: ASCORBIC ACID 500 MG TABLET PO SCH ×2 (10:53→21:37)
[2023-08-13] MEDS: ONDANSETRON HCL 4MG/2ML INJ IV PRN (10:54)
[2023-08-13] MEDS: FERROUS SULFATE 325MG TABLET PO SCH ×2 (10:54→18:47)
[2023-08-13] MEDS: LEVETIRACETAM 500MG PREMIX 100 ML IV SCH ×2 (10:54→21:41)
[2023-08-13] MEDS: SODIUM CHLORIDE 0.9% 1,000 ML IV SCH ×2 (10:55→21:43)
[2023-08-13] MEDS: PANTOPRAZOLE SODIUM 40 MG/VIAL IV SCH ×2 (14:51→18:47)
[2023-08-13] MEDS: RISPERIDONE 0.25MG TABLET PO SCH (14:51)
[2023-08-13 18:01] LABS: PLATELET ESTIMATE NORMAL
[2023-08-13 18:47] LABS: CHLORIDE 92 mEq/L (98-107); INDEX HEMOLYSI 1 (1-3); INDEX ICTERIC 1 (1-4); INDEX LIPEMIC 1 (1-3); POTASSIUM 3.8 mEq/L (3.5-5.1); SODIUM 124 mEq/L (136-145)
[2023-08-13 18:48] LABS: CALCIUM 8.7 mg/dL (8.5-10.1)
[2023-08-13 18:52] LABS: CARBON DIOXIDE 21 mEq/L (21-32); CREATININE 0.4 mg/dL (0.6-1.3); GLUCOSE 73 mg/dL (70-105); UREA NITROGEN BLOOD 5 mg/dL (7-21)
[2023-08-14] VITALS (7 sets, daily range): BP systolic 117–130; BP diastolic 72–87; PULSE 71–82; RESP 13–19; TEMP 97.8–98.3
[2023-08-14] MEDS: DIAZEPAM 2 MG TABLET PO PRN (03:12)
[2023-08-14 03:29] LABS: BASOPHILS % 1.1 % (0.0-2.0); HEMATOCRIT. 29.4 % (42.0-52.0); HEMOGLOBIN. 10.3 g/dL (14.0-18.0); LYMPHOCYTES % 15.7 % (20.0-50.0); MEAN CORPUSCULAR HEMOGLOBIN 28.3 pg (28.0-32.0); MEAN CORPUSCULAR HGB CONC 35.1 g/dL (31.0-37.0); MEAN CORPUSCULAR VOLUME 80.7 fL (80.0-94.0); MEAN PLATELET VOLUME 7.9 fl (7.4-10.4); MONOCYTES % 8.6 % (2.0-8.0); NEUTROPHILS % 71.6 % (40.0-76.0); PLATELET 376 x1000/uL (130-400); RED BLOOD CELL COUNT 3.64 mill/uL (4.7-6.1); RED CELL DISTRIBUTION WIDTH 14.2 % (11.6-14.6); WHITE BLOOD COUNT 4.8 x1000/uL (4.5-11.0)
[2023-08-14 03:36] LABS: PROTHROMBIN TIME 11.2 sec (9.6-11.0)
[2023-08-14 03:38] LABS: CHLORIDE 91 mEq/L (98-107); INDEX HEMOLYSI 1 (1-3); INDEX ICTERIC 1 (1-4); INDEX LIPEMIC 1 (1-3); SODIUM 123 mEq/L (136-145)
[2023-08-14 03:39] LABS: CALCIUM 8.6 mg/dL (8.5-10.1); CARBON DIOXIDE 23 mEq/L (21-32); UREA NITROGEN BLOOD 6 mg/dL (7-21)
[2023-08-14 03:43] LABS: CREATININE 0.6 mg/dL (0.6-1.3); GLUCOSE 101 mg/dL (70-105)
[2023-08-14] MEDS: LACTULOSE 20G/30ML UDC PO SCH ×3 (06:00→22:00)
[2023-08-14] MEDS: QUETIAPINE FUMARATE 25MG TABLET PO SCH ×3 (06:03→22:00)
[2023-08-14] MEDS: PANTOPRAZOLE SODIUM 40 MG/VIAL IV SCH (09:56)
[2023-08-14] MEDS: ASCORBIC ACID 500 MG TABLET PO SCH ×2 (09:56→21:00)
[2023-08-14] MEDS: RISPERIDONE 0.25MG TABLET PO SCH (09:56)
[2023-08-14] MEDS: FERROUS SULFATE 325MG TABLET PO SCH ×2 (09:56→18:00)
[2023-08-14] MEDS: POTASSIUM CHLORIDE 20MEQ TABLET SR PO SCH ×2 (09:56→17:00)
[2023-08-14] MEDS: LEVETIRACETAM 500MG PREMIX 100 ML IV SCH (09:56)
[2023-08-14] MEDS: SODIUM CHLORIDE 0.9% 1,000 ML IV SCH ×2 (09:57→21:45)
[2023-08-14] MEDS ORDERED: CEFAZOLIN 1000MG PREMIX 50 ML IV NR (10:00)
[2023-08-14] MEDS ORDERED: CEFAZOLIN 1000MG PREMIX 50 ML IV ONE (15:00)
[2023-08-14 19:15] LABS: THYROID STIMULATING HORMONE 0.5 uIU/mL (0.36-3.74)
[2023-08-14] MEDS: LORAZEPAM 2MG/ML CPJ IV PRN (23:51)
[2023-08-15 04:00] VITALS: BP 139/77; PULSE 96; RESP 19; TEMP 97.5
[2023-08-15] MEDS: LACTULOSE 20G/30ML UDC PO SCH ×3 (06:00→20:41)
[2023-08-15] MEDS: QUETIAPINE FUMARATE 25MG TABLET PO SCH ×3 (06:00→20:42)
[2023-08-15 06:28] LABS: HEMATOCRIT. 31.5 % (42.0-52.0); HEMOGLOBIN. 10.8 g/dL (14.0-18.0); MEAN CORPUSCULAR HEMOGLOBIN 28.2 pg (28.0-32.0); MEAN CORPUSCULAR HGB CONC 34.4 g/dL (31.0-37.0); MEAN PLATELET VOLUME 7.9 fl (7.4-10.4); PLATELET 366 x1000/uL (130-400); RED BLOOD CELL COUNT 3.84 mill/uL (4.7-6.1); RED CELL DISTRIBUTION WIDTH 13.8 % (11.6-14.6); WHITE BLOOD COUNT 7.3 x1000/uL (4.5-11.0)
[2023-08-15 06:29] LABS: DIFFERENTIAL COMMENT 1
[2023-08-15 06:55] LABS: CHLORIDE 88 mEq/L (98-107); INDEX HEMOLYSI 1 (1-3); INDEX ICTERIC 1 (1-4); INDEX LIPEMIC 1 (1-3); POTASSIUM 3.6 mEq/L (3.5-5.1)
[2023-08-15 06:59] LABS: CALCIUM 8.5 mg/dL (8.5-10.1); CARBON DIOXIDE 24 mEq/L (21-32); CREATININE 0.4 mg/dL (0.6-1.3); GLUCOSE 92 mg/dL (70-105); UREA NITROGEN BLOOD 3 mg/dL (7-21)
[2023-08-15 07:15] LABS: SODIUM 118 mEq/L (136-145)
[2023-08-15] MEDS ORDERED: SODIUM CHLORIDE 3% 500ML IV SOLN IV ONE (07:45)
[2023-08-15 08:00] VITALS: BP 133/83; PULSE 95; RESP 18; TEMP 97.7
[2023-08-15] MEDS: FERROUS SULFATE 325MG TABLET PO SCH ×2 (08:00→18:00)
[2023-08-15] MEDS: POTASSIUM CHLORIDE 20MEQ TABLET SR PO SCH (08:52)
[2023-08-15] MEDS: ASCORBIC ACID 500 MG TABLET PO SCH ×2 (08:53→20:41)
[2023-08-15] MEDS ORDERED: SODIUM CHLORIDE 3% 300 ML IV NR (09:00)
[2023-08-15 12:00] VITALS: BP 117/69; PULSE 93; RESP 16; TEMP 98
[2023-08-15 13:45] LABS: PLATELET ESTIMATE NORMAL
[2023-08-15 16:00] VITALS: BP 121/72; PULSE 85; RESP 15; TEMP 97.9
[2023-08-15 20:03] VITALS: BP 128/75; PULSE 78; RESP 19; TEMP 97.8
[2023-08-15 22:00] VITALS: BP 108/79; PULSE 92; RESP 17
[2023-08-16] VITALS (8 sets, daily range): BP systolic 108–124; BP diastolic 65–86; PULSE 75–103; RESP 18–20; TEMP 97.9–98.1
[2023-08-16] MEDS: LORAZEPAM 2MG/ML CPJ IV PRN ×3 (00:39→16:28)
[2023-08-16] MEDS: DEXT 5%/0.9% NACL 1,000 ML IV SCH ×2 (03:10→06:47)
[2023-08-16] MEDS: LACTULOSE 20G/30ML UDC PO SCH ×3 (05:47→21:11)
[2023-08-16] MEDS: QUETIAPINE FUMARATE 25MG TABLET PO SCH ×3 (05:48→21:11)
[2023-08-16 06:42] LABS: BASOPHILS % 0.6 % (0.0-2.0); EOSINOPHILS % 0.7 % (0.0-5.0); HEMATOCRIT. 30.2 % (42.0-52.0); HEMOGLOBIN. 10.9 g/dL (14.0-18.0); MEAN CORPUSCULAR HEMOGLOBIN 29.4 pg (28.0-32.0); MEAN CORPUSCULAR HGB CONC 35.9 g/dL (31.0-37.0); MEAN CORPUSCULAR VOLUME 81.8 fL (80.0-94.0); MONOCYTES % 7.9 % (2.0-8.0); NEUTROPHILS % 82.8 % (40.0-76.0); PLATELET 392 x1000/uL (130-400); RED CELL DISTRIBUTION WIDTH 14.1 % (11.6-14.6); WHITE BLOOD COUNT 6.8 x1000/uL (4.5-11.0)
[2023-08-16 08:16] LABS: CHLORIDE 91 mEq/L (98-107); INDEX HEMOLYSI 1 (1-3); INDEX ICTERIC 1 (1-4); INDEX LIPEMIC 1 (1-3); POTASSIUM 3.4 mEq/L (3.5-5.1); SODIUM 123 mEq/L (136-145)
[2023-08-16 08:26] LABS: CALCIUM 8.8 mg/dL (8.5-10.1); CARBON DIOXIDE 21 mEq/L (21-32); CREATININE 0.4 mg/dL (0.6-1.3); GLUCOSE 96 mg/dL (70-105); UREA NITROGEN BLOOD 4 mg/dL (7-21)
[2023-08-16] MEDS: FERROUS SULFATE 325MG TABLET PO SCH ×2 (09:00→17:17)
[2023-08-16] MEDS: ASCORBIC ACID 500 MG TABLET PO SCH ×2 (09:00→21:11)
[2023-08-16] MEDS ORDERED: PROPOFOL 10MG/ML 100ML 100 ML IV ONE (12:55)
[2023-08-16] MEDS ORDERED: KCL 20MEQ/100ML PREMIX 100 ML IV NR (13:00)
[2023-08-16] MEDS ORDERED: MIDAZOLAM HCL 2 MG/2 ML VIAL ONE (13:07)
[2023-08-16] MEDS ORDERED: TETRACAINE/BENZOCAINE/BUTAMBEN 20 GM SPRAY MM ONE (14:27)
[2023-08-16] MEDS ORDERED: LIDOCAINE 2% 6ML GLYDO MM ONE (14:27)
[2023-08-16] MEDS ORDERED: FENTANYL CITRATE/PF 50MCG/ML 2ML VIAL IV PRN (15:15)
[2023-08-17] VITALS: BP 119/89; PULSE 106; RESP 23; TEMP 97.6
[2023-08-17] MEDS: LORAZEPAM 2MG/ML CPJ IV PRN ×3 (00:23→15:36)
[2023-08-17] MEDS: ASCORBIC ACID 500 MG TABLET PO SCH ×2 (02:02→09:27)
[2023-08-17 04:00] VITALS: BP 122/80; PULSE 88; RESP 19
[2023-08-17] MEDS: QUETIAPINE FUMARATE 25MG TABLET PO SCH ×3 (05:58→22:00)
[2023-08-17] MEDS: LACTULOSE 20G/30ML UDC PO SCH ×3 (05:58→22:00)
[2023-08-17] MEDS: DEXT 5%/0.9% NACL 1,000 ML IV SCH ×2 (06:01→14:47)
[2023-08-17 07:58] LABS: CHLORIDE 93 mEq/L (98-107); POTASSIUM 3.3 mEq/L (3.5-5.1); SODIUM 123 mEq/L (136-145)
[2023-08-17 08:00] VITALS: BP 111/79; PULSE 102; RESP 19; TEMP 97.9
[2023-08-17 08:08] LABS: BASOPHILS % 0.7 % (0.0-2.0); EOSINOPHILS % 0.9 % (0.0-5.0); HEMOGLOBIN. 10.2 g/dL (14.0-18.0); LYMPHOCYTES % 7.2 % (20.0-50.0); MEAN CORPUSCULAR HEMOGLOBIN 29.3 pg (28.0-32.0); MEAN CORPUSCULAR HGB CONC 36.2 g/dL (31.0-37.0); MEAN CORPUSCULAR VOLUME 80.8 fL (80.0-94.0); MEAN PLATELET VOLUME 7.9 fl (7.4-10.4); MONOCYTES % 6.3 % (2.0-8.0); NEUTROPHILS % 84.9 % (40.0-76.0); PLATELET 360 x1000/uL (130-400); RED BLOOD CELL COUNT 3.47 mill/uL (4.7-6.1); RED CELL DISTRIBUTION WIDTH 13.9 % (11.6-14.6); WHITE BLOOD COUNT 7.2 x1000/uL (4.5-11.0)
[2023-08-17 09:07] LABS: DIFFERENTIAL COMMENT 1
[2023-08-17] MEDS: FERROUS SULFATE 325MG TABLET PO SCH ×2 (09:27→18:10)
[2023-08-17 10:55] LABS: CALCIUM 8.7 mg/dL (8.5-10.1); INDEX HEMOLYSI 1 (1-3); INDEX ICTERIC 1 (1-4); INDEX LIPEMIC 1 (1-3)
[2023-08-17 11:00] LABS: CARBON DIOXIDE 22 mEq/L (21-32); CREATININE 0.4 mg/dL (0.6-1.3); GLUCOSE 118 mg/dL (70-105); UREA NITROGEN BLOOD 2 mg/dL (7-21)
[2023-08-17] MEDS ORDERED: GUAIFENESIN-DM 200MG-20MG/10ML UDC PO PRN (14:30)
[2023-08-17] MEDS ORDERED: POTASSIUM CHLORIDE 20MEQ TABLET SR PO NR (17:30)
[2023-08-17 17:59] LABS: PHOSPHORUS 3.1 mg/dL (2.5-4.9)
[2023-08-17 20:00] VITALS: BP 103/63; PULSE 98; RESP 20; TEMP 96.7
[2023-08-18] VITALS: BP 117/73; PULSE 77; RESP 20; TEMP 98.9
[2023-08-18] MEDS ORDERED: POTASSIUM CHLORIDE INJ 40 MEQ in DEXT 5% WATER 250 ML IV NR ×2
[2023-08-18 04:00] VITALS: BP 118/75; PULSE 75; RESP 20; TEMP 97.7
[2023-08-18] MEDS: QUETIAPINE FUMARATE 25MG TABLET PO SCH ×3 (05:23→22:00)
[2023-08-18] MEDS: LACTULOSE 20G/30ML UDC PO SCH ×3 (05:23→22:00)
[2023-08-18] MEDS: DEXT 5%/0.9% NACL 1,000 ML IV SCH ×2 (05:47→21:50)
[2023-08-18 06:47] LABS: BASOPHILS % 0.6 % (0.0-2.0); EOSINOPHILS % 1.6 % (0.0-5.0); HEMATOCRIT. 31.5 % (42.0-52.0); HEMOGLOBIN. 11.2 g/dL (14.0-18.0); LYMPHOCYTES % 9.4 % (20.0-50.0); MEAN CORPUSCULAR HEMOGLOBIN 28.9 pg (28.0-32.0); MEAN CORPUSCULAR HGB CONC 35.6 g/dL (31.0-37.0); MEAN CORPUSCULAR VOLUME 81.1 fL (80.0-94.0); MEAN PLATELET VOLUME 8.1 fl (7.4-10.4); MONOCYTES % 6.3 % (2.0-8.0); NEUTROPHILS % 82.1 % (40.0-76.0); PLATELET 424 x1000/uL (130-400); RED BLOOD CELL COUNT 3.88 mill/uL (4.7-6.1); RED CELL DISTRIBUTION WIDTH 13.8 % (11.6-14.6)
[2023-08-18 07:18] LABS: CHLORIDE 88 mEq/L (98-107); INDEX HEMOLYSI 1 (1-3); INDEX ICTERIC 1 (1-4); INDEX LIPEMIC 1 (1-3); POTASSIUM 3.3 mEq/L (3.5-5.1); SODIUM 124 mEq/L (136-145)
[2023-08-18 07:25] LABS: CALCIUM 9.3 mg/dL (8.5-10.1); CARBON DIOXIDE 25 mEq/L (21-32); CREATININE 0.4 mg/dL (0.6-1.3); GLUCOSE 96 mg/dL (70-105); UREA NITROGEN BLOOD 2 mg/dL (7-21)
[2023-08-18] MEDS: FERROUS SULFATE 325MG TABLET PO SCH ×2 (08:10→17:47)
[2023-08-18 08:28] VITALS: BP 110/73; PULSE 72; RESP 18; TEMP 97.8
[2023-08-18] MEDS: ASCORBIC ACID 500 MG TABLET PO SCH ×2 (08:51→21:00)
[2023-08-18] MEDS ORDERED: MAGNESIUM 1 G PREMIX 100 ML IV NR (09:00)
[2023-08-18] MEDS ORDERED: POTASSIUM CHLORIDE 20MEQ TABLET SR PO NR (11:00)
[2023-08-18 11:14] LABS: PHOSPHORUS 3.3 mg/dL (2.5-4.9)
[2023-08-18 12:00] VITALS: BP 125/82; PULSE 63; RESP 18; TEMP 97
[2023-08-18] MEDS ORDERED: KCL 20MEQ/100ML PREMIX 100 ML IV NR (12:30)
[2023-08-18 16:00] VITALS: BP 116/72; PULSE 71; RESP 18; TEMP 98
[2023-08-18 20:00] VITALS: BP 123/76; PULSE 67; RESP 19; TEMP 97.2
[2023-08-19] VITALS (7 sets, daily range): BP systolic 114–127; BP diastolic 74–80; PULSE 60–79; RESP 18–20; TEMP 96.1–97.8
[2023-08-19] MEDS: QUETIAPINE FUMARATE 25MG TABLET PO SCH ×3 (06:00→21:12)
[2023-08-19] MEDS: LACTULOSE 20G/30ML UDC PO SCH ×3 (06:00→21:12)
[2023-08-19 07:03] LABS: BASOPHILS % 0.8 % (0.0-2.0); EOSINOPHILS % 1.7 % (0.0-5.0); HEMATOCRIT. 30.5 % (42.0-52.0); HEMOGLOBIN. 10.9 g/dL (14.0-18.0); LYMPHOCYTES % 11.3 % (20.0-50.0); MEAN CORPUSCULAR HEMOGLOBIN 28.9 pg (28.0-32.0); MEAN CORPUSCULAR HGB CONC 35.9 g/dL (31.0-37.0); MEAN CORPUSCULAR VOLUME 80.6 fL (80.0-94.0); MEAN PLATELET VOLUME 7.9 fl (7.4-10.4); MONOCYTES % 6.1 % (2.0-8.0); NEUTROPHILS % 80.1 % (40.0-76.0); PLATELET 442 x1000/uL (130-400); RED BLOOD CELL COUNT 3.78 mill/uL (4.7-6.1); RED CELL DISTRIBUTION WIDTH 13.6 % (11.6-14.6); WHITE BLOOD COUNT 6.1 x1000/uL (4.5-11.0)
[2023-08-19 07:13] LABS: CHLORIDE 92 mEq/L (98-107); INDEX HEMOLYSI 1 (1-3); INDEX ICTERIC 1 (1-4); INDEX LIPEMIC 1 (1-3); POTASSIUM 3.5 mEq/L (3.5-5.1); SODIUM 122 mEq/L (136-145)
[2023-08-19 07:17] LABS: CALCIUM 8.9 mg/dL (8.5-10.1); CARBON DIOXIDE 20 mEq/L (21-32); CREATININE 0.3 mg/dL (0.6-1.3); GLUCOSE 108 mg/dL (70-105); UREA NITROGEN BLOOD 3 mg/dL (7-21)
[2023-08-19] MEDS: FERROUS SULFATE 325MG TABLET PO SCH ×2 (08:10→17:58)
[2023-08-19] MEDS: ASCORBIC ACID 500 MG TABLET PO SCH ×2 (09:00→21:00)
[2023-08-19] MEDS: DEMECLOCYCLINE HCL 300MG TABLET PO SCH ×2 (09:00→17:00)
[2023-08-19] MEDS: DEXT 5%/0.9% NACL 1,000 ML IV SCH ×2 (10:18→21:53)
[2023-08-20] VITALS: BP_SYST 110; BP_SYST 129; BP_DIAS 55; BP_DIAS 76; PULSE 73; PULSE 76; RESP 19; TEMP 97.5; TEMP 99.1
[2023-08-20 04:00] VITALS: BP 124/64; PULSE 80; RESP 19; TEMP 98.1
[2023-08-20] MEDS: QUETIAPINE FUMARATE 25MG TABLET PO SCH ×3 (04:20→20:07)
[2023-08-20] MEDS: LACTULOSE 20G/30ML UDC PO SCH ×3 (04:20→20:07)
[2023-08-20 06:56] LABS: HEMATOCRIT. 31.8 % (42.0-52.0); HEMOGLOBIN. 11.3 g/dL (14.0-18.0); MEAN CORPUSCULAR HEMOGLOBIN 28.6 pg (28.0-32.0); MEAN CORPUSCULAR HGB CONC 35.7 g/dL (31.0-37.0); MEAN CORPUSCULAR VOLUME 80.2 fL (80.0-94.0); MEAN PLATELET VOLUME 7.5 fl (7.4-10.4); PLATELET 457 x1000/uL (130-400); RED BLOOD CELL COUNT 3.96 mill/uL (4.7-6.1); RED CELL DISTRIBUTION WIDTH 13.7 % (11.6-14.6); WHITE BLOOD COUNT 6.1 x1000/uL (4.5-11.0)
[2023-08-20 07:38] LABS: DIFFERENTIAL COMMENT 1
[2023-08-20 07:50] LABS: CHLORIDE 95 mEq/L (98-107); INDEX HEMOLYSI 1 (1-3); INDEX ICTERIC 1 (1-4); INDEX LIPEMIC 1 (1-3); POTASSIUM 3.9 mEq/L (3.5-5.1); SODIUM 127 mEq/L (136-145)
[2023-08-20 07:59] LABS: CALCIUM 8.4 mg/dL (8.5-10.1); CARBON DIOXIDE 23 mEq/L (21-32); CREATININE 0.4 mg/dL (0.6-1.3); GLUCOSE 113 mg/dL (70-105); UREA NITROGEN BLOOD 3 mg/dL (7-21)
[2023-08-20 08:00] VITALS: BP 132/78; PULSE 85; RESP 18; TEMP 97.6
[2023-08-20] MEDS: FERROUS SULFATE 325MG TABLET PO SCH ×2 (08:10→18:10)
[2023-08-20] MEDS: DEMECLOCYCLINE HCL 300MG TABLET PO SCH ×2 (09:00→17:00)
[2023-08-20] MEDS: ASCORBIC ACID 500 MG TABLET PO SCH ×2 (09:00→20:07)
[2023-08-20 12:00] VITALS: BP 136/72; PULSE 81; RESP 18; TEMP 97.3
[2023-08-20 16:00] VITALS: BP 125/83; PULSE 135; RESP 20; TEMP 97.8
[2023-08-20] MEDS: LORAZEPAM 2MG/ML CPJ IV PRN (16:00)
[2023-08-20] MEDS: DEXT 5%/0.9% NACL 1,000 ML IV SCH (16:00)
[2023-08-20 18:59] LABS: PLATELET ESTIMATE INCREASED
[2023-08-20] MEDS ORDERED: DILTIAZEM HCL 5MG/ML 5ML VIAL IV NR (19:00)
[2023-08-20 20:00] VITALS: BP 154/85; PULSE 155; RESP 20; TEMP 100.2
[2023-08-20] MEDS: PIPERACILLIN/TAZOBACTAM 3.375 G in DEXTROSE 5% WATER 50 ML IV SCH (20:07)
[2023-08-20] MEDS: ACETAMINOPHEN 325MG TABLET PO PRN (20:07)
[2023-08-20 21:00] LABS: CLARITY URINE CLOUDY (CLEAR); COLOR URINE YELLOW (YELLOW); GLUCOSE URINE NEGATIVE (NEGATIVE); KETONES URINE 2+ (NEGATIVE); LEUKOCYTE ESTERASE URINE 2+ (NEGATIVE); NITRITE URINE POSITIVE (NEGATIVE); OCCULT BLOOD URINE NEGATIVE (NEGATIVE); PROTEIN URINE NEGATIVE (NEGATIVE); SPECIFIC GRAVITY URINE 1.013 (1.005-1.030); UROBILINOGEN URINE >8.0 E.U./dL (0.2-1.0)
[2023-08-20 21:34] LABS: BACTERIA URINE 4+; SQUAMOUS EPITHELIAL CELL URINE FEW /lpf (RARE/1+)
[2023-08-20 21:35] LABS: RBC URINE 0-2 /hpf (0-2)
[2023-08-21] VITALS: BP 101/59; PULSE 104; RESP 18; TEMP 97.9
[2023-08-21 04:00] VITALS: BP 110/66; PULSE 99; RESP 18; TEMP 97.6
[2023-08-21] MEDS: DEXT 5%/0.9% NACL 1,000 ML IV SCH (05:43)
[2023-08-21] MEDS: PIPERACILLIN/TAZOBACTAM 3.375 G in DEXTROSE 5% WATER 50 ML IV SCH ×3 (05:43→21:31)
[2023-08-21] MEDS: QUETIAPINE FUMARATE 25MG TABLET PO SCH ×3 (05:45→21:30)
[2023-08-21] MEDS: LACTULOSE 20G/30ML UDC PO SCH ×3 (05:45→21:31)
[2023-08-21 06:58] LABS: HEMATOCRIT. 33.4 % (42.0-52.0); HEMOGLOBIN. 11.7 g/dL (14.0-18.0); MEAN CORPUSCULAR HEMOGLOBIN 28.7 pg (28.0-32.0); MEAN CORPUSCULAR HGB CONC 34.9 g/dL (31.0-37.0); MEAN CORPUSCULAR VOLUME 82.1 fL (80.0-94.0); RED BLOOD CELL COUNT 4.07 mill/uL (4.7-6.1); RED CELL DISTRIBUTION WIDTH 13.8 % (11.6-14.6)
[2023-08-21 07:04] LABS: DIFFERENTIAL COMMENT 1
[2023-08-21 07:14] LABS: CHLORIDE 97 mEq/L (98-107); INDEX HEMOLYSI 1 (1-3); INDEX ICTERIC 1 (1-4); INDEX LIPEMIC 1 (1-3); SODIUM 127 mEq/L (136-145)
[2023-08-21 07:20] LABS: CARBON DIOXIDE 23 mEq/L (21-32); CREATININE 0.9 mg/dL (0.6-1.3); GLUCOSE 96 mg/dL (70-105); UREA NITROGEN BLOOD 10 mg/dL (7-21)
[2023-08-21 08:00] VITALS: BP 91/59; PULSE 99; RESP 18; TEMP 97.3
[2023-08-21] MEDS: ASCORBIC ACID 500 MG TABLET PO SCH ×2 (08:39→21:30)
[2023-08-21] MEDS: DEMECLOCYCLINE HCL 300MG TABLET PO SCH ×2 (08:39→17:00)
[2023-08-21] MEDS: FERROUS SULFATE 325MG TABLET PO SCH ×2 (08:43→17:12)
[2023-08-21 10:09] LABS: PLATELET 400 x1000/uL (130-400)
[2023-08-21 10:14] LABS: PLATELET ESTIMATE NORMAL
[2023-08-21 12:00] VITALS: BP 102/64; PULSE 76; RESP 18; TEMP 97.1
[2023-08-21 16:00] VITALS: BP 103/69; PULSE 60; RESP 18; TEMP 97.3
[2023-08-21] MEDS ORDERED: LORAZEPAM 2MG/ML CPJ IV NR (21:44)
[2023-08-21] MEDS ORDERED: DIPHENHYDRAMINE 50MG/ML VIAL IV NR (21:45)
[2023-08-22 03:49] LABS: BASOPHILS % 0.9 % (0.0-2.0); EOSINOPHILS % 1.3 % (0.0-5.0); HEMATOCRIT. 31.6 % (42.0-52.0); HEMOGLOBIN. 11.1 g/dL (14.0-18.0); LYMPHOCYTES % 9.4 % (20.0-50.0); MEAN CORPUSCULAR HEMOGLOBIN 28.3 pg (28.0-32.0); MEAN CORPUSCULAR HGB CONC 35.1 g/dL (31.0-37.0); MEAN CORPUSCULAR VOLUME 80.4 fL (80.0-94.0); MEAN PLATELET VOLUME 7.6 fl (7.4-10.4); NEUTROPHILS % 78.4 % (40.0-76.0); PLATELET 350 x1000/uL (130-400); RED BLOOD CELL COUNT 3.93 mill/uL (4.7-6.1); RED CELL DISTRIBUTION WIDTH 13.9 % (11.6-14.6)
[2023-08-22 04:06] LABS: INR 1.1; PROTHROMBIN TIME 11.7 sec (9.6-11.0)
[2023-08-22 05:47] LABS: CALCIUM 8.2 mg/dL (8.5-10.1); INDEX HEMOLYSI 1 (1-3); INDEX ICTERIC 1 (1-4); INDEX LIPEMIC 1 (1-3)
[2023-08-22 05:49] LABS: SODIUM 127 mEq/L (136-145)
[2023-08-22 05:50] LABS: CARBON DIOXIDE 21 mEq/L (21-32); CHLORIDE 96 mEq/L (98-107); CREATININE 0.6 mg/dL (0.6-1.3); GLUCOSE 102 mg/dL (70-105); POTASSIUM 2.9 mEq/L (3.5-5.1); UREA NITROGEN BLOOD 8 mg/dL (7-21)
[2023-08-22] MEDS: LACTULOSE 20G/30ML UDC PO SCH ×3 (06:00→21:42)
[2023-08-22] MEDS: QUETIAPINE FUMARATE 25MG TABLET PO SCH ×3 (06:00→21:42)
[2023-08-22] MEDS: PIPERACILLIN/TAZOBACTAM 3.375 G in DEXTROSE 5% WATER 50 ML IV SCH (06:25)
[2023-08-22] MEDS: FERROUS SULFATE 325MG TABLET PO SCH ×2 (07:50→17:30)
[2023-08-22 08:00] VITALS: BP 99/58; PULSE 68; RESP 18; TEMP 97.8
[2023-08-22] MEDS: ASCORBIC ACID 500 MG TABLET PO SCH ×2 (09:00→21:42)
[2023-08-22] MEDS ORDERED: POTASSIUM CHLORIDE 20MEQ/PACKET PO NR (10:30)
[2023-08-22 12:00] VITALS: BP 99/63; PULSE 65; RESP 18; TEMP 97.5
[2023-08-22] MEDS ORDERED: ETOMIDATE 2MG/ML 10ML VIAL IV ONE ×2 (14:20→14:37)
[2023-08-22] MEDS ORDERED: DEXAMETHASONE 4MG/ML 1ML VIAL ONE (14:20)
[2023-08-22] MEDS ORDERED: ONDANSETRON HCL 4MG/2ML INJ ONE (14:20)
[2023-08-22] MEDS: MEROPENEM 1,000 MG in SODIUM CHLORIDE 0.9% 100 ML IV SCH (18:46)
[2023-08-22 20:00] VITALS: BP 103/64; PULSE 72; RESP 20; TEMP 96.7
[2023-08-23] VITALS: BP 104/69; PULSE 64; RESP 20; TEMP 96.5
[2023-08-23] MEDS: MEROPENEM 1,000 MG in SODIUM CHLORIDE 0.9% 100 ML IV SCH ×3 (00:55→17:34)
[2023-08-23] MEDS: LORAZEPAM 2MG/ML CPJ IV PRN (01:07)
[2023-08-23] MEDS: LACTULOSE 20G/30ML UDC PO SCH ×3 (06:00→21:10)
[2023-08-23] MEDS: QUETIAPINE FUMARATE 25MG TABLET PO SCH ×3 (06:00→21:10)
[2023-08-23 07:52] LABS: BASOPHILS % 0.4 % (0.0-2.0); EOSINOPHILS % 0.5 % (0.0-5.0); HEMATOCRIT. 29.9 % (42.0-52.0); HEMOGLOBIN. 10.4 g/dL (14.0-18.0); LYMPHOCYTES % 8.6 % (20.0-50.0); MEAN CORPUSCULAR HEMOGLOBIN 28.3 pg (28.0-32.0); MEAN CORPUSCULAR HGB CONC 34.7 g/dL (31.0-37.0); MEAN CORPUSCULAR VOLUME 81.7 fL (80.0-94.0); MEAN PLATELET VOLUME 7.6 fl (7.4-10.4); NEUTROPHILS % 82.5 % (40.0-76.0); PLATELET 384 x1000/uL (130-400); RED BLOOD CELL COUNT 3.66 mill/uL (4.7-6.1); RED CELL DISTRIBUTION WIDTH 13.7 % (11.6-14.6); WHITE BLOOD COUNT 7.3 x1000/uL (4.5-11.0)
[2023-08-23 08:00] VITALS: BP 108/76; PULSE 70; RESP 20; TEMP 98.2
[2023-08-23] MEDS: FERROUS SULFATE 325MG TABLET PO SCH ×2 (08:29→17:34)
[2023-08-23] MEDS: ASCORBIC ACID 500 MG TABLET PO SCH ×2 (08:29→21:10)
[2023-08-23 09:16] LABS: CALCIUM 8.9 mg/dL (8.5-10.1); CARBON DIOXIDE 25 mEq/L (21-32); CHLORIDE 102 mEq/L (98-107); GLUCOSE 102 mg/dL (70-105); INDEX HEMOLYSI 1 (1-3); INDEX ICTERIC 1 (1-4); INDEX LIPEMIC 1 (1-3); SODIUM 133 mEq/L (136-145); UREA NITROGEN BLOOD 5 mg/dL (7-21)
[2023-08-23 09:19] LABS: CREATININE 0.5 mg/dL (0.6-1.3)
[2023-08-23 12:00] VITALS: BP 108/74; PULSE 89; RESP 20; TEMP 98.4
[2023-08-24] VITALS: BP 105/72; PULSE 80; RESP 20; TEMP 96.5
[2023-08-24] MEDS: MEROPENEM 1,000 MG in SODIUM CHLORIDE 0.9% 100 ML IV SCH ×3 (02:24→17:47)
[2023-08-24 06:33] LABS: BASOPHILS % 1.2 % (0.0-2.0); EOSINOPHILS % 1.2 % (0.0-5.0); HEMATOCRIT. 35.2 % (42.0-52.0); HEMOGLOBIN. 12.1 g/dL (14.0-18.0); LYMPHOCYTES % 9.1 % (20.0-50.0); MEAN CORPUSCULAR HEMOGLOBIN 28.5 pg (28.0-32.0); MEAN CORPUSCULAR HGB CONC 34.5 g/dL (31.0-37.0); MEAN CORPUSCULAR VOLUME 82.5 fL (80.0-94.0); MONOCYTES % 6.9 % (2.0-8.0); NEUTROPHILS % 81.6 % (40.0-76.0); RED BLOOD CELL COUNT 4.26 mill/uL (4.7-6.1); RED CELL DISTRIBUTION WIDTH 13.8 % (11.6-14.6)
[2023-08-24 06:41] LABS: DIFFERENTIAL COMMENT 1
[2023-08-24 06:43] LABS: CHLORIDE 101 mEq/L (98-107); INDEX HEMOLYSI 5 (1-3); INDEX ICTERIC 1 (1-4); INDEX LIPEMIC 1 (1-3); POTASSIUM 4.7 mEq/L (3.5-5.1); SODIUM 128 mEq/L (136-145)
[2023-08-24 06:50] LABS: CALCIUM 8.4 mg/dL (8.5-10.1); CARBON DIOXIDE 22 mEq/L (21-32); CREATININE 0.4 mg/dL (0.6-1.3); GLUCOSE 74 mg/dL (70-105); UREA NITROGEN BLOOD 3 mg/dL (7-21)
[2023-08-24] MEDS: LACTULOSE 20G/30ML UDC PO SCH ×3 (07:05→21:16)
[2023-08-24] MEDS: QUETIAPINE FUMARATE 25MG TABLET PO SCH (07:05)
[2023-08-24 08:00] VITALS: BP 118/78; PULSE 86; RESP 20; TEMP 97.2
[2023-08-24] MEDS: ASCORBIC ACID 500 MG TABLET PO SCH ×2 (08:42→21:16)
[2023-08-24] MEDS: FERROUS SULFATE 325MG TABLET PO SCH ×2 (08:42→17:45)
[2023-08-24] MEDS: LORAZEPAM 2MG/ML CPJ IV PRN (08:43)
[2023-08-24 10:04] LABS: PLATELET 420 x1000/uL (130-400)
[2023-08-24 12:00] VITALS: BP 120/75; PULSE 69; RESP 19; TEMP 97.9
[2023-08-24 16:00] VITALS: PULSE 86; RESP 20; TEMP 97.4
[2023-08-24] MEDS: QUETIAPINE FUMARATE 50MG TABLET PO SCH (17:47)
[2023-08-24 20:00] VITALS: BP 138/105; PULSE 111; RESP 18; TEMP 96.5
[2023-08-25] VITALS: BP 122/78; PULSE 90; RESP 18; TEMP 96.5
[2023-08-25] MEDS: LORAZEPAM 2MG/ML CPJ IV PRN (00:22)
[2023-08-25] MEDS: MEROPENEM 1,000 MG in SODIUM CHLORIDE 0.9% 100 ML IV SCH ×3 (01:26→18:06)
[2023-08-25 04:00] VITALS: BP 126/80; PULSE 77; RESP 20; TEMP 96.3
[2023-08-25] MEDS: LACTULOSE 20G/30ML UDC PO SCH ×3 (07:07→21:00)
[2023-08-25 08:00] VITALS: BP 104/71; PULSE 80; RESP 17; TEMP 97.5
[2023-08-25] MEDS: ASCORBIC ACID 500 MG TABLET PO SCH ×2 (08:00→20:59)
[2023-08-25] MEDS: FERROUS SULFATE 325MG TABLET PO SCH ×2 (08:00→18:06)
[2023-08-25] MEDS: QUETIAPINE FUMARATE 50MG TABLET PO SCH ×2 (08:00→18:06)
[2023-08-25 12:00] VITALS: BP 114/72; PULSE 80; RESP 18; TEMP 97.6
[2023-08-25 16:00] VITALS: BP 140/77; PULSE 74; RESP 18; TEMP 97.5
[2023-08-25 20:00] VITALS: BP 119/66; PULSE 60; RESP 20; TEMP 95.9
[2023-08-26] MEDS: MEROPENEM 1,000 MG in SODIUM CHLORIDE 0.9% 100 ML IV SCH ×3 (00:37→17:30)
[2023-08-26 04:00] VITALS: BP 116/73; PULSE 69; RESP 20; TEMP 96.2
[2023-08-26] MEDS: LACTULOSE 20G/30ML UDC PO SCH (05:25)
[2023-08-26 08:00] VITALS: BP 101/65; PULSE 69; RESP 18; TEMP 98.1
[2023-08-26] MEDS: ASCORBIC ACID 500 MG TABLET PO SCH (08:35)
[2023-08-26] MEDS: QUETIAPINE FUMARATE 50MG TABLET PO SCH ×2 (08:35→16:19)
[2023-08-26] MEDS: FERROUS SULFATE 325MG TABLET PO SCH (08:35)
[2023-08-26 11:38] LABS: BASOPHILS % 1.9 % (0.0-2.0); EOSINOPHILS % 1.4 % (0.0-5.0); HEMOGLOBIN. 11.1 g/dL (14.0-18.0); LYMPHOCYTES % 13.8 % (20.0-50.0); MEAN CORPUSCULAR HEMOGLOBIN 27.8 pg (28.0-32.0); MEAN CORPUSCULAR HGB CONC 33.7 g/dL (31.0-37.0); MEAN CORPUSCULAR VOLUME 82.4 fL (80.0-94.0); MEAN PLATELET VOLUME 7.9 fl (7.4-10.4); MONOCYTES % 5.7 % (2.0-8.0); NEUTROPHILS % 77.2 % (40.0-76.0); PLATELET 413 x1000/uL (130-400); WHITE BLOOD COUNT 6.4 x1000/uL (4.5-11.0)
[2023-08-26 11:40] LABS: CHLORIDE 106 mEq/L (98-107); INDEX HEMOLYSI 3 (1-3); INDEX ICTERIC 1 (1-4); INDEX LIPEMIC 1 (1-3); POTASSIUM 4.2 mEq/L (3.5-5.1); SODIUM 135 mEq/L (136-145)
[2023-08-26 11:47] LABS: CALCIUM 8.8 mg/dL (8.5-10.1); CARBON DIOXIDE 27 mEq/L (21-32); CREATININE 0.5 mg/dL (0.6-1.3); GLUCOSE 121 mg/dL (70-105); UREA NITROGEN BLOOD 6 mg/dL (7-21)
[2023-08-26 12:00] VITALS: BP 110/70; PULSE 70; RESP 17; TEMP 97.2
[2023-08-26 16:00] VITALS: BP 129/80; PULSE 78; RESP 18; TEMP 98.1
[2023-08-26 20:00] VITALS: BP 120/76; PULSE 79; RESP 20; TEMP 97.1
[2023-08-27] VITALS: BP 119/69; PULSE 73; RESP 20; TEMP 96.6
[2023-08-27] MEDS: MEROPENEM 1,000 MG in SODIUM CHLORIDE 0.9% 100 ML IV SCH ×3 (01:51→17:30)
[2023-08-27 04:00] VITALS: BP 111/62; PULSE 75; RESP 20; TEMP 97.4
[2023-08-27 08:00] VITALS: BP 114/73; PULSE 62; RESP 18; TEMP 97.1
[2023-08-27 12:00] VITALS: BP 137/82; PULSE 74; RESP 17; TEMP 97.7
[2023-08-27] MEDS: QUETIAPINE FUMARATE 50MG TABLET PO SCH ×2 (12:05→22:18)
[2023-08-27] MEDS: LORAZEPAM 2MG/ML CPJ IM PRN ×2 (13:51→22:28)
[2023-08-27 16:00] VITALS: BP 128/74; PULSE 74; RESP 18; TEMP 97.6
[2023-08-27 20:00] VITALS: BP 112/86; PULSE 74; RESP 20; TEMP 97.5
[2023-08-28] VITALS: BP 113/68; PULSE 87; RESP 18; TEMP 97.5
[2023-08-28] MEDS: MEROPENEM 1,000 MG in SODIUM CHLORIDE 0.9% 100 ML IV SCH ×3 (01:48→19:17)
[2023-08-28 04:00] VITALS: BP 115/68; PULSE 91; RESP 18; TEMP 97.2
[2023-08-28 08:00] VITALS: BP 128/78; PULSE 91; RESP 19; TEMP 98.1
[2023-08-28] MEDS: QUETIAPINE FUMARATE 50MG TABLET PO SCH ×2 (09:00→19:16)
[2023-08-28] MEDS: LORAZEPAM 2MG/ML CPJ IM PRN ×2 (11:15→20:16)
[2023-08-28 12:00] VITALS: BP 120/70; PULSE 80; RESP 17; TEMP 97.6
[2023-08-28 16:00] VITALS: BP 130/78; PULSE 108; RESP 20; TEMP 97.5
[2023-08-28 20:00] VITALS: BP 110/78; PULSE 87; RESP 18; TEMP 97.7
[2023-08-29] VITALS: BP 118/72; PULSE 82; RESP 18; TEMP 97.2
[2023-08-29] MEDS: MEROPENEM 1,000 MG in SODIUM CHLORIDE 0.9% 100 ML IV SCH ×3 (01:31→16:34)
[2023-08-29 04:00] VITALS: BP 108/75; PULSE 73; RESP 18; TEMP 97.1
[2023-08-29 07:22] LABS: BASOPHILS % 1.9 % (0.0-2.0); EOSINOPHILS % 1.9 % (0.0-5.0); HEMATOCRIT. 32.4 % (42.0-52.0); LYMPHOCYTES % 14.7 % (20.0-50.0); MEAN CORPUSCULAR HEMOGLOBIN 28.2 pg (28.0-32.0); MEAN CORPUSCULAR VOLUME 82.7 fL (80.0-94.0); MEAN PLATELET VOLUME 7.3 fl (7.4-10.4); NEUTROPHILS % 74.5 % (40.0-76.0); PLATELET 457 x1000/uL (130-400); RED BLOOD CELL COUNT 3.92 mill/uL (4.7-6.1); RED CELL DISTRIBUTION WIDTH 13.7 % (11.6-14.6); WHITE BLOOD COUNT 5.5 x1000/uL (4.5-11.0)
[2023-08-29 08:00] VITALS: BP 125/77; PULSE 68; RESP 16; TEMP 96.5
[2023-08-29] MEDS: QUETIAPINE FUMARATE 50MG TABLET PO SCH ×2 (09:19→16:34)
[2023-08-29 09:36] LABS: CHLORIDE 109 mEq/L (98-107); INDEX HEMOLYSI 1 (1-3); INDEX ICTERIC 1 (1-4); INDEX LIPEMIC 1 (1-3); SODIUM 143 mEq/L (136-145)
[2023-08-29 09:44] LABS: CALCIUM 9.1 mg/dL (8.5-10.1); CARBON DIOXIDE 28 mEq/L (21-32); CREATININE 0.6 mg/dL (0.6-1.3); GLUCOSE 101 mg/dL (70-105); UREA NITROGEN BLOOD 11 mg/dL (7-21)
[2023-08-29 12:00] VITALS: BP 132/76; PULSE 102; RESP 20; TEMP 97.6
[2023-08-29 16:00] VITALS: BP 137/65; PULSE 101; RESP 20; TEMP 97.3
[2023-08-29 20:00] VITALS: BP 95/60; PULSE 79; RESP 18; TEMP 98.8
[2023-08-29] MEDS: LORAZEPAM 2MG/ML CPJ IM PRN (20:30)
[2023-08-30] VITALS: BP 117/78; PULSE 80; RESP 20; TEMP 98.7
[2023-08-30] MEDS: LORAZEPAM 2MG/ML CPJ IM PRN ×3 (00:58→15:29)
[2023-08-30 04:00] VITALS: BP 125/80; PULSE 97; RESP 20; TEMP 98.9
[2023-08-30 08:00] VITALS: BP 120/70; PULSE 90; RESP 19; TEMP 98.7
[2023-08-30] MEDS: QUETIAPINE FUMARATE 200MG TABLET PO SCH ×2 (08:49→21:29)
[2023-08-30 12:00] VITALS: BP 120/73; PULSE 113; RESP 20; TEMP 98.6
[2023-08-30 16:00] VITALS: BP 107/76; PULSE 97; RESP 20; TEMP 96.6
[2023-08-30 20:00] VITALS: BP 116/86; PULSE 105; RESP 18; TEMP 98.7
[2023-08-31] VITALS: BP 118/76; PULSE 111; RESP 19; TEMP 97.5
[2023-08-31 04:00] VITALS: BP 122/81; PULSE 89; RESP 18; TEMP 97.9
[2023-08-31 08:00] VITALS: BP 112/73; PULSE 94; RESP 19; TEMP 99.9
[2023-08-31] MEDS: QUETIAPINE FUMARATE 200MG TABLET PO SCH ×2 (10:00→21:40)
[2023-08-31 12:00] VITALS: BP 109/67; PULSE 102; RESP 18; TEMP 98.2
[2023-08-31] MEDS: LORAZEPAM 2MG/ML CPJ IM PRN ×2 (13:09→21:54)
[2023-08-31 16:00] VITALS: BP 117/80; PULSE 94; RESP 18; TEMP 99.9
[2023-08-31 20:00] VITALS: BP 117/80; PULSE 95; RESP 16; TEMP 97.7
[2023-09-01] VITALS: BP 121/82; PULSE 103; RESP 18; TEMP 97.4
[2023-09-01 04:00] VITALS: BP 119/77; PULSE 101; RESP 18; TEMP 97.4
[2023-09-01 08:00] VITALS: BP 115/74; PULSE 87; RESP 19; TEMP 97.7
[2023-09-01] MEDS: QUETIAPINE FUMARATE 200MG TABLET PO SCH ×2 (11:36→20:18)
[2023-09-01 12:00] VITALS: BP 111/74; PULSE 115; RESP 19; TEMP 97.8
[2023-09-01] MEDS: LORAZEPAM 2MG/ML CPJ IM PRN ×2 (14:45→20:18)
[2023-09-01 16:00] VITALS: BP 119/77; PULSE 120; RESP 19; TEMP 98.2
[2023-09-01 20:00] VITALS: BP 92/55; PULSE 117; RESP 18; TEMP 96.5
[2023-09-02] VITALS: BP 118/66; PULSE 119; RESP 18; TEMP 96.5
[2023-09-02] MEDS: LORAZEPAM 2MG/ML CPJ IM PRN ×3 (01:25→17:00)
[2023-09-02 04:00] VITALS: BP 118/74; PULSE 92; RESP 18; TEMP 96.5
[2023-09-02 08:00] VITALS: BP 118/71; PULSE 111; RESP 19; TEMP 97.1
[2023-09-02] MEDS: QUETIAPINE FUMARATE 200MG TABLET PO SCH ×2 (08:50→21:26)
[2023-09-02 12:00] VITALS: BP 112/68; PULSE 89; RESP 20; TEMP 96.9
[2023-09-02 16:00] VITALS: BP 116/81; PULSE 94; RESP 20; TEMP 98.1
[2023-09-02 20:00] VITALS: BP_SYST 110; BP_SYST 99; BP_DIAS 65; BP_DIAS 70; PULSE 91; RESP 18; TEMP 96.5
[2023-09-03] VITALS: BP 99/65; PULSE 118; RESP 18; TEMP 96.3
[2023-09-03] MEDS: LORAZEPAM 2MG/ML CPJ IM PRN ×3 (00:33→12:37)
[2023-09-03 04:00] VITALS: BP 95/60; PULSE 111; RESP 18; TEMP 95.7
[2023-09-03 08:00] VITALS: BP 98/72; PULSE 82; RESP 18; TEMP 97.5
[2023-09-03] MEDS: QUETIAPINE FUMARATE 200MG TABLET PO SCH ×2 (09:12→20:48)
[2023-09-03 12:00] VITALS: BP 118/65; PULSE 113; RESP 21; TEMP 97.4
[2023-09-03 16:00] VITALS: BP 110/69; PULSE 117; RESP 21; TEMP 97.7
[2023-09-03 20:00] VITALS: BP 119/71; PULSE 102; RESP 17; TEMP 99.3
[2023-09-04] VITALS: BP 107/73; PULSE 79; RESP 16; TEMP 98.7
[2023-09-04] MEDS: LORAZEPAM 2MG/ML CPJ IM PRN ×2 (00:41→09:14)
[2023-09-04 04:00] VITALS: BP 129/75; PULSE 64; RESP 19; TEMP 97.3
[2023-09-04] MEDS: QUETIAPINE FUMARATE 200MG TABLET PO SCH ×2 (09:00→21:20)
[2023-09-04] MEDS ORDERED: ONDANSETRON HCL 4MG/2ML INJ IV PRN (13:15)
[2023-09-04 15:08] VITALS: BP 112/74; PULSE 74; RESP 19; TEMP 97.8
[2023-09-04 20:00] VITALS: BP 113/79; PULSE 85; RESP 16; TEMP 97.5
[2023-09-04] MEDS: ATORVASTATIN CALCIUM 40MG TABLET PO SCH (21:21)
[2023-09-04] MEDS: QUETIAPINE FUMARATE 50MG TABLET PO SCH (21:21)
[2023-09-05] VITALS: BP 114/60; PULSE 78; RESP 17; TEMP 99.3
[2023-09-05 04:00] VITALS: BP 131/79; PULSE 89; RESP 20; TEMP 97.4
[2023-09-05 08:00] VITALS: BP 125/81; PULSE 105; RESP 20; TEMP 98.3
[2023-09-05] MEDS: QUETIAPINE FUMARATE 200MG TABLET PO SCH ×2 (09:23→20:52)
[2023-09-05] MEDS: QUETIAPINE FUMARATE 50MG TABLET PO SCH (09:23)
[2023-09-05 12:00] VITALS: BP 124/90; PULSE 102; RESP 20; TEMP 98
[2023-09-05] MEDS: LORAZEPAM 2MG/ML CPJ IM PRN (13:23)
[2023-09-05 16:00] VITALS: BP 121/80; PULSE 108; RESP 20; TEMP 98.2
[2023-09-05 20:00] VITALS: BP 130/70; PULSE 106; RESP 19; TEMP 99.5
[2023-09-05] MEDS: ATORVASTATIN CALCIUM 40MG TABLET PO SCH (20:52)
[2023-09-06] VITALS: BP 121/70; PULSE 68; RESP 17; TEMP 97.3
[2023-09-06 04:00] VITALS: BP 117/84; PULSE 101; RESP 18; TEMP 97.1
[2023-09-06 06:56] LABS: BASOPHILS % 1.8 % (0.0-2.0); EOSINOPHILS % 1.8 % (0.0-5.0); HEMATOCRIT. 35.3 % (42.0-52.0); HEMOGLOBIN. 11.6 g/dL (14.0-18.0); MEAN CORPUSCULAR HEMOGLOBIN 27.7 pg (28.0-32.0); MEAN CORPUSCULAR HGB CONC 32.8 g/dL (31.0-37.0); MEAN CORPUSCULAR VOLUME 84.4 fL (80.0-94.0); MEAN PLATELET VOLUME 8.7 fl (7.4-10.4); MONOCYTES % 5.7 % (2.0-8.0); NEUTROPHILS % 73.7 % (40.0-76.0); PLATELET 375 x1000/uL (130-400); RED BLOOD CELL COUNT 4.18 mill/uL (4.7-6.1); RED CELL DISTRIBUTION WIDTH 14.2 % (11.6-14.6)
[2023-09-06 08:00] VITALS: BP 100/70; PULSE 87; RESP 20; TEMP 97.7
[2023-09-06] MEDS: QUETIAPINE FUMARATE 200MG TABLET PO SCH ×2 (08:55→20:00)
[2023-09-06 09:01] LABS: CALCIUM 9.3 mg/dL (8.5-10.1); INDEX HEMOLYSI 1 (1-3); INDEX ICTERIC 1 (1-4); INDEX LIPEMIC 1 (1-3)
[2023-09-06 09:06] LABS: CARBON DIOXIDE 26 mEq/L (21-32); CHLORIDE 120 mEq/L (98-107); CREATININE 0.7 mg/dL (0.6-1.3); GLUCOSE 95 mg/dL (70-105); POTASSIUM 3.5 mEq/L (3.5-5.1); SODIUM 152 mEq/L (136-145); UREA NITROGEN BLOOD 22 mg/dL (7-21)
[2023-09-06 16:00] VITALS: BP 112/73; PULSE 73; RESP 19; TEMP 96.7
[2023-09-06] MEDS ORDERED: HALOPERIDOL LACTATE 5MG/ML VIAL IM NR (17:15)
[2023-09-06] MEDS: ATORVASTATIN CALCIUM 40MG TABLET PO SCH (20:00)
[2023-09-06] MEDS: LORAZEPAM 2MG/ML CPJ IV PRN (20:00)
[2023-09-07] VITALS: BP 126/83; PULSE 96; RESP 18; TEMP 98.6
[2023-09-07 04:00] VITALS: BP 133/86; PULSE 89; RESP 18; TEMP 97.7
[2023-09-07 08:00] VITALS: BP 130/80; PULSE 60; RESP 19; TEMP 98.6
[2023-09-07] MEDS: QUETIAPINE FUMARATE 200MG TABLET PO SCH ×2 (09:20→21:00)
[2023-09-07 12:00] VITALS: BP 122/72; PULSE 74; RESP 20; TEMP 98.2
[2023-09-07 16:00] VITALS: BP 145/79; PULSE 103; RESP 19; TEMP 98.6
[2023-09-07 20:00] VITALS: BP 117/84; PULSE 96; RESP 18; TEMP 98.4
[2023-09-07] MEDS: ATORVASTATIN CALCIUM 40MG TABLET PO SCH (21:00)
[2023-09-08] VITALS: BP 135/83; PULSE 83; RESP 20; TEMP 98.5
[2023-09-08] MEDS: LORAZEPAM 2MG/ML CPJ IV PRN (02:37)
[2023-09-08 04:00] VITALS: BP 136/84; PULSE 71; RESP 20; TEMP 98.4
[2023-09-08 08:00] VITALS: BP 118/79; PULSE 72; RESP 17; TEMP 96.9
[2023-09-08] MEDS: QUETIAPINE FUMARATE 200MG TABLET PO SCH ×2 (08:48→21:25)
[2023-09-08 12:00] VITALS: BP 116/74; PULSE 93; RESP 18; TEMP 97.9
[2023-09-08 16:00] VITALS: BP 122/74; RESP 19; TEMP 97.9
[2023-09-08 20:00] VITALS: BP 132/65; PULSE 76; RESP 19; TEMP 97.8
[2023-09-08] MEDS: ATORVASTATIN CALCIUM 40MG TABLET PO SCH (21:22)
[2023-09-09] VITALS: BP 135/82; PULSE 97; RESP 18; TEMP 98.7
[2023-09-09 04:00] VITALS: BP 111/72; PULSE 84; RESP 18; TEMP 97.9
[2023-09-09 08:00] VITALS: BP 125/67; PULSE 66; RESP 18; TEMP 98.2
[2023-09-09] MEDS: QUETIAPINE FUMARATE 200MG TABLET PO SCH ×2 (08:56→21:19)
[2023-09-09 12:00] VITALS: BP 112/74; PULSE 82; RESP 19; TEMP 96.9
[2023-09-09 16:00] VITALS: BP 108/75; PULSE 78; RESP 18; TEMP 97.7
[2023-09-09 20:00] VITALS: BP 119/83; PULSE 60; RESP 18; TEMP 97.7
[2023-09-09] MEDS: ATORVASTATIN CALCIUM 40MG TABLET PO SCH (21:19)
[2023-09-10] VITALS: BP_SYST 116; BP_SYST 120; BP_DIAS 75; BP_DIAS 79; PULSE 76; PULSE 86; RESP 18; TEMP 97.9
[2023-09-10 06:40] LABS: BASOPHILS % 0.8 % (0.0-2.0); EOSINOPHILS % 2.5 % (0.0-5.0); HEMATOCRIT. 33.3 % (42.0-52.0); HEMOGLOBIN. 11.2 g/dL (14.0-18.0); LYMPHOCYTES % 11.7 % (20.0-50.0); MEAN CORPUSCULAR HEMOGLOBIN 27.6 pg (28.0-32.0); MEAN CORPUSCULAR HGB CONC 33.6 g/dL (31.0-37.0); MONOCYTES % 6.3 % (2.0-8.0); NEUTROPHILS % 78.7 % (40.0-76.0); PLATELET 329 x1000/uL (130-400); RED BLOOD CELL COUNT 4.06 mill/uL (4.7-6.1); RED CELL DISTRIBUTION WIDTH 14.7 % (11.6-14.6); WHITE BLOOD COUNT 6.3 x1000/uL (4.5-11.0)
[2023-09-10 08:00] VITALS: PULSE 74; RESP 20; TEMP 97.9
[2023-09-10] MEDS: QUETIAPINE FUMARATE 200MG TABLET PO SCH ×2 (09:17→22:06)
[2023-09-10 10:06] LABS: CHLORIDE 110 mEq/L (98-107); INDEX HEMOLYSI 1 (1-3); INDEX ICTERIC 1 (1-4); INDEX LIPEMIC 1 (1-3); SODIUM 141 mEq/L (136-145)
[2023-09-10 10:11] LABS: CARBON DIOXIDE 26 mEq/L (21-32); CREATININE 0.7 mg/dL (0.6-1.3); GLUCOSE 91 mg/dL (70-105); UREA NITROGEN BLOOD 11 mg/dL (7-21)
[2023-09-10 12:00] VITALS: BP 108/76; PULSE 98; RESP 19; TEMP 97.7
[2023-09-10 16:00] VITALS: BP 126/82; PULSE 78; RESP 19; TEMP 97.9
[2023-09-10 20:00] VITALS: BP 111/78; PULSE 94; RESP 18; TEMP 97.9
[2023-09-10] MEDS: ATORVASTATIN CALCIUM 40MG TABLET PO SCH (21:00)
[2023-09-11] VITALS: BP 97/61; PULSE 79; RESP 18; TEMP 97.4
[2023-09-11 04:00] VITALS: BP 119/72; PULSE 72; RESP 18; TEMP 97.6
[2023-09-11 08:00] VITALS: BP 137/91; PULSE 77; RESP 19; TEMP 97.9
[2023-09-11] MEDS: QUETIAPINE FUMARATE 200MG TABLET PO SCH ×2 (08:37→21:24)
[2023-09-11 12:00] VITALS: BP 174/79; PULSE 75; RESP 18; TEMP 97.9
[2023-09-11 16:00] VITALS: BP 134/79; PULSE 78; RESP 19; TEMP 97.7
[2023-09-11 20:00] VITALS: BP 123/83; PULSE 77; RESP 16; TEMP 98.1
[2023-09-11] MEDS: ATORVASTATIN CALCIUM 40MG TABLET PO SCH (21:24)
[2023-09-12] VITALS: BP 101/57; PULSE 62; RESP 20; TEMP 97.3
[2023-09-12 04:00] VITALS: BP 127/60; PULSE 93; RESP 18; TEMP 97.1
[2023-09-12 08:00] VITALS: BP 136/64; PULSE 84; RESP 19; TEMP 98.8
[2023-09-12] MEDS: QUETIAPINE FUMARATE 200MG TABLET PO SCH ×2 (09:30→21:41)
[2023-09-12] MEDS: ACETAMINOPHEN 325MG TABLET PO PRN (09:30)
[2023-09-12 12:00] VITALS: BP_SYST 103; BP_SYST 136; BP_DIAS 61; BP_DIAS 64; PULSE 89; RESP 20; TEMP 97.5; TEMP 98.8
[2023-09-12 16:00] VITALS: BP 138/68; PULSE 81; RESP 20; TEMP 91.1
[2023-09-12 20:00] VITALS: BP 124/103; PULSE 90; RESP 18; TEMP 96.5
[2023-09-12] MEDS: ATORVASTATIN CALCIUM 40MG TABLET PO SCH (21:40)
[2023-09-13] VITALS: BP 116/71; PULSE 82; RESP 18; TEMP 96.5
[2023-09-13 08:00] VITALS: BP 120/74; PULSE 72; RESP 20; TEMP 97.5
[2023-09-13] MEDS: QUETIAPINE FUMARATE 200MG TABLET PO SCH ×2 (09:05→21:57)
[2023-09-13] MEDS: ACETAMINOPHEN 325MG TABLET PO PRN (09:05)
[2023-09-13 12:00] VITALS: BP 108/66; PULSE 86; RESP 20; TEMP 97.9
[2023-09-13 16:00] VITALS: BP 130/79; PULSE 77; RESP 20; TEMP 97.7
[2023-09-13 20:00] VITALS: BP 121/79; PULSE 89; RESP 19; TEMP 98.2
[2023-09-13] MEDS: ATORVASTATIN CALCIUM 40MG TABLET PO SCH (21:57)
[2023-09-14] VITALS: BP 121/79; PULSE 89; RESP 19; TEMP 98.2
[2023-09-14 08:00] VITALS: BP 108/73; PULSE 77; RESP 18; TEMP 97.4
[2023-09-14] MEDS: QUETIAPINE FUMARATE 200MG TABLET PO SCH (08:40)
[2023-09-14 11:53] VITALS: BP 132/78; PULSE 88; TEMP 97.8; O2SAT 98
[2023-09-14 12:00] VITALS: BP 107/65; PULSE 92; RESP 18; TEMP 97.6
== END 2023-09-14 15:00 | DRG 720 ==
LOC: ER 10:27 → EDBEDREQTM 12:58 → EDBEDREQSVC 12:58 → EDBEDREQ 12:58 → MICUSO 15:43 → EDBEDREQTM 15:46 → EDBEDREQSVC 15:46 → ENRESERV 23:05 → MICUSO 07-26 02:49 → 7WST 07-29 07:40 → MICUSO 07-30 15:11 → 5EST 07-31 23:08 → 7WST 08-17 13:04 → 6EST 08-21 19:32
PROVIDERS: ADMIT Internal Medicine; ATTEND Internal Medicine
PROC: 5A12012 Performance of Cardiac Output, Single, Manual (ICD-10-PCS; principal; 2023-07-25)
PROC: 5A1945Z Respiratory Ventilation, 24-96 Consecutive Hours (ICD-10-PCS; 2023-07-25)
PROC: 30233N1 Transfusion of Nonautologous Red Blood Cells into Peripheral Vein, Percutaneous Approach (ICD-10-PCS; 2023-07-25)
PROC: 0BH17EZ Insertion of Endotracheal Airway into Trachea, Via Natural or Artificial Opening (ICD-10-PCS; 2023-07-25)
PROC: B54BZZA Ultrasonography of Right Lower Extremity Veins, Guidance (ICD-10-PCS; 2023-07-25)
PROC: 06HY33Z Insertion of Infusion Device into Lower Vein, Percutaneous Approach (ICD-10-PCS; 2023-07-25)
PROC: 30233K1 Transfusion of Nonautologous Frozen Plasma into Peripheral Vein, Percutaneous Approach (ICD-10-PCS; 2023-07-26)
PROC: 02HV33Z Insertion of Infusion Device into Superior Vena Cava, Percutaneous Approach (ICD-10-PCS; 2023-07-28)
PROC: B548ZZA Ultrasonography of Superior Vena Cava, Guidance (ICD-10-PCS; 2023-07-28)
PROC: 0DB78ZX Excision of Stomach, Pylorus, Via Natural or Artificial Opening Endoscopic, Diagnostic (ICD-10-PCS; 2023-07-28)
PROC: 4A00X4Z Measurement of Central Nervous Electrical Activity, External Approach (ICD-10-PCS; 2023-08-22)
PROC: 0DH63UZ Insertion of Feeding Device into Stomach, Percutaneous Approach (ICD-10-PCS; 2023-08-22)
DX: A41.9 Sepsis, unspecified organism (principal); I46.9 Cardiac arrest, cause unspecified; I63.9 Cerebral infarction, unspecified; I60.9 Nontraumatic subarachnoid hemorrhage, unspecified; J96.01 Acute respiratory failure with hypoxia; E43 Unspecified severe protein-calorie malnutrition; K22.11 Ulcer of esophagus with bleeding; R57.8 Other shock; K76.0 Fatty (change of) liver, not elsewhere classified; D64.9 Anemia, unspecified; J18.9 Pneumonia, unspecified organism; G92.8 Other toxic encephalopathy; R65.21 Severe sepsis with septic shock; E11.9 Type 2 diabetes mellitus without complications; E87.1 Hypo-osmolality and hyponatremia; K80.20 Calculus of gallbladder without cholecystitis without obstruction; K76.89 Other specified diseases of liver; S90.821A Blister (nonthermal), right foot, initial encounter; E87.6 Hypokalemia; K29.70 Gastritis, unspecified, without bleeding; K29.80 Duodenitis without bleeding; I62.00 Nontraumatic subdural hemorrhage, unspecified; E72.20 Disorder of urea cycle metabolism, unspecified; F19.90 Other psychoactive substance use, unspecified, uncomplicated; E88.09 Other disorders of plasma-protein metabolism, not elsewhere classified; R23.4 Changes in skin texture; R47.01 Aphasia; I07.1 Rheumatic tricuspid insufficiency; N30.90 Cystitis, unspecified without hematuria; K76.6 Portal hypertension; N17.9 Acute kidney failure, unspecified; F10.20 Alcohol dependence, uncomplicated; F17.210 Nicotine dependence, cigarettes, uncomplicated; I47.10 Supraventricular tachycardia, unspecified; R13.12 Dysphagia, oropharyngeal phase; Z86.73 Personal history of transient ischemic attack (TIA), and cerebral infarction without residual deficits; Z59.00 Homelessness unspecified; Z68.26 Body mass index [BMI] 26.0-26.9, adult; Z87.19 Personal history of other diseases of the digestive system; Z79.899 Other long term (current) drug therapy; Z78.1 Physical restraint status; X58.XXXA Exposure to other specified factors, initial encounter; Y93.89 Activity, other specified; Y92.89 Other specified places as the place of occurrence of the external cause; Y99.8 Other external cause status; Z79.4 Long term (current) use of insulin
CPT/HCPCS: 31500; 36415; 36573; 36600; 70460; 70496; 70498; 71045; 74018; 74174; 76700; 80048; 80053; 80061; 80202; 80305; 80320; 81003; 82140; 82375; 82533; 82550; 82607; 82728; 82746; 82805; 82962; 83010; 83036; 83540; 83550; 83735; 83930; 84100; 84145; 84295; 84439; 84443; 84481; 84484; 85014; 85018; 85025; 85044; 86705; 86709; 86803; 86850; 86900; 86920; 86927; 87077; 87186; 87340; 87426; 88305; 90732; 92610; 93005; 93306; 93312; 94002; 94003; 94640; 97162; 97164; 97166; 97530; 97535; 99291; A6261; C1725; C1769; C1893; C9113; J0360; J0610; J0690; J1100; J1630; J1953; J2060; J2185; J2250; J2270; J2370; J2405; J2543; J2704; J3010; J3370; J3411; J3420; J3430; J3475; J3480; J3490; J7030; J7042; J7050; J7060; J7070; J7121; P9016; P9017; Q9967; G0480

== ENCOUNTER 2025-07-29 11:47 | Emergency (ER) | payer MEDICAID ==
[~2025-07-29] VITALS: Ht 175.3 cm; Wt 91.0 kg
[~2025-07-29 11:47] MED LIST: BO1 TP; CHLO473M2 MT; IBUP-1455 MT
[2025-07-29 11:50] VITALS: O2SAT 100
[2025-07-29 12:23] VITALS: BP 140/93; PULSE 69; RESP 16; TEMP 36.9; O2SAT 100
== END 2025-07-29 12:23 | disposition home or self-care (01) ==
LOC: ER 11:47
DX: S01.511D Laceration without foreign body of lip, subsequent encounter (principal); X58.XXXD Exposure to other specified factors, subsequent encounter
CPT/HCPCS: 99281

== ENCOUNTER 2025-07-31 13:41 | Emergency (ER) | payer MEDICAID ==
[~2025-07-31] VITALS: Ht 170.2 cm; Wt 95.0 kg
[2025-07-31 13:56] VITALS: TEMP 36.8; O2SAT 99
[2025-07-31 16:00] VITALS: BP 128/84; PULSE 60; RESP 16; O2SAT 100
== END 2025-07-31 16:05 | disposition home or self-care (01) ==
LOC: ER 13:41
DX: S01.511D Laceration without foreign body of lip, subsequent encounter (principal); X58.XXXD Exposure to other specified factors, subsequent encounter
CPT/HCPCS: 99281; Z7610